=== PATIENT | female | born 1945 | race Asian ===

== ENCOUNTER 2019-12-30 16:10 | Emergency (ER) | payer MEDICARE, SELFPAY ==
[2019-12-30 16:21] VITALS: BP 138/68; PULSE 79; RESP 21; TEMP 36.7; O2SAT 98; BMI 22.6
--- NOTE | 2019-12-30 16:28 | ED_ITS ---
HPI - Chest Pain <MADELINE Srivastava - Last Filed: 12/30/19 21:03> General Chief Complaint: Chest Pain Stated Complaint: new medication,now has CP past few days Time Seen by Provider: 12/30/19 16:12 Source: patient Mode of arrival: Ambulatory Limitations: no limitations History of Present Illness HPI narrative: 74-year-old female with a history of hypertension, presents emergency department complaining of intermittent chest pain for the past 5 days. She states she was prescribed amlodipine by her primary care provider, Dr. Rojas, 5 days ago, she started taking this medication at this time which is when she developed the symptoms. She reports intermittent substernal chest pain with episodes lasting 1-2 minutes. Patient describes the quality of the pain as ?normal pain ?. Denies burning, sharp stabbing, or pressure. She denies any aggravating or alleviating factors to her pain. However, this morning she had an episode of diaphoresis, nausea, and diarrhea with the chest pain. She denies any palpitation, shortness of breath, cough, stomach pain, blood in the stool, vomiting, fevers, or any other concerns. Patient states she took a baby aspirin this morning. She denies taking any other blood thinners. Upon further questioning, patient states that she has had a ?abnormal heartbeat ?in the past, she is unsure the exact name. Related Data Previous Rx's Medication Instructions Recorded omeprazole 20 mg PO DAILY #14 cap 12/30/19 Allergies Allergy/AdvReac Type Severity Reaction Status Date / Time morphine Allergy Verified 12/30/19 16:26 Review of Systems <MADELINE Srivastava - Last Filed: 12/30/19 21:03> Review of Systems Narrative: REVIEW OF SYSTEMS: Poor historian. History also obtained from patient's daughter. GENERAL: Denies fever or chills. HENT: No head trauma, hearing loss or sore throat. EYES: No vision changes. CARDIOVASCULAR: No chest pain, see HPI. RESPIRATORY: No shortness of breath or cough. GASTROINTESTINAL: Reports diarrhea, see HPI. GENITOURINARY: No flank pain or dysuria. MUSCULOSKELETAL: No pain, weakness, or deformities. INTEGUMENTARY: No rash, lesions, or pruritus. NEURO: No numbness, tingling, memory loss, or confusion. PSYCH: No behavior or mood changes. Patient History <MADELINE Srivastava - Last Filed: 12/30/19 21:03> Medical History HTN (hypertension) (Acute) Social History Smoking Status: Unknown if ever smoked Smoking Status: Unknown if ever smoked alcohol intake frequency: holidays/special occasions only Substance Use Type: does not use Exam <MADELINE Srivastava - Last Filed: 12/30/19 21:03> Initial Vital Signs Initial Vital Signs: Vital Signs Temperature 98.0 F 12/30/19 16:21 Pulse Rate 79 12/30/19 16:21 Respiratory Rate 21 12/30/19 16:21 Blood Pressure 138/68 12/30/19 16:21 Pulse Oximetry 98 12/30/19 16:21 PHYSICAL EXAMINATION: GENERAL: Well groomed, alert, and cooperative. Answers questions appropriately. Vital signs noted. HENT: Normocephalic, atraumatic. Ear canals patent. Oral mucosa is pink and moist. EYES: Conjunctiva pink, sclera white, no periorbital swelling. CHEST: Normal to inspection and without deformities. CARDIOVASCULAR: S1 and S2 sounds normal. Regular rate and rhythm, no murmurs, clicks, or bruits. No pedal edema. RESPIRATORY: Normal respiratory rate, trachea midline, airway patent. No stridor, nasal flaring or accessory muscle use. Lungs are clear in all perez without wheeze, rhonchi, or crackles. GASTROINTESTINAL: Bowel sounds normoactive. Abdomen is soft and non-tender. No organomegaly. MUSCULOSKELETAL: Normal gait and coordination. Equal tone and mass bilaterally. EXTREMITIES: CMS intact. Moves all extremities. SKIN: Warm, dry, soft, appropriate color for ethnicity. No lesions, rashes, or wounds. NEURO: Alert and Oriented X 3. Good coordination. No ataxia, or sensory deficits , or cognitive issues. PSYCH: Appropriate affect and mood. <Ida Bell MD - Last Filed: 12/31/19 00:06> Initial Vital Signs Initial Vital Signs: Vital Signs Temperature 98.0 F 12/30/19 16:21 Pulse Rate 79 12/30/19 16:21 Respiratory Rate 21 12/30/19 16:21 Blood Pressure 138/68 12/30/19 16:21 Pulse Oximetry 98 12/30/19 16:21 Course <Clare MADELINE Frias - Last Filed: 12/30/19 21:03> Course Course Narrative: 1900: Patient re-evaluated, continues to be pain-free. Requesting to be discharged. Orders Ordered: ED Orders 12/30/19 16:23 Complete Blood Count AUTO DIFF Stat Comprehensive Metabolic Panel Stat Lipase Stat Troponin & CK Cardiac Panel Stat 12/30/19 16:27 XR chest 1V Stat EKG-12 Lead Stat Discontinued Medications Sodium Chloride (Normal Saline 0.9%) 1,000 mls @ 150 mls/hr IV CONT GEORGE Last Infusion: 12/30/19 19:40 Dose: 0 mls/hr Documented by: Admin: 12/30/19 16:48 Dose: 150 mls/hr Documented by: MAGALYS Consultations Consultation #1: Patient staffed with Dr. Bell, discussed test, test results, plan of care. Vital Signs Vital signs: Vital Signs - 8 hr 12/30/19 16:21 12/30/19 16:53 12/30/19 18:33 Temperature 98.0 F Pulse Rate 79 77 70 Respiratory Rate 21 17 15 Blood Pressure 138/68 Blood Pressure [Right Arm] 133/77 130/65 Pulse Oximetry 98 100 99 12/30/19 19:29 Temperature Pulse Rate 71 Respiratory Rate 14 Blood Pressure Blood Pressure [Right Arm] 145/71 H Pulse Oximetry 97 <Ida Bell MD - Last Filed: 12/31/19 00:06> Orders Ordered: ED Orders 12/30/19 16:23 Complete Blood Count AUTO DIFF Stat Comprehensive Metabolic Panel Stat Lipase Stat Troponin & CK Cardiac Panel Stat 12/30/19 16:27 XR chest 1V Stat EKG-12 Lead Stat Discontinued Medications Sodium Chloride (Normal Saline 0.9%) 1,000 mls @ 150 mls/hr IV CONT GEORGE Last Infusion: 12/30/19 19:40 Dose: 0 mls/hr Documented by: Admin: 12/30/19 16:48 Dose: 150 mls/hr Documented by: MAGALYS Vital Signs Vital signs: Vital Signs - 8 hr 12/30/19 16:21 12/30/19 16:53 05/14/20 18:33 Temperature 98.0 F Pulse Rate 79 77 70 Respiratory Rate 21 17 15 Blood Pressure 138/68 Blood Pressure [Right Arm] 133/77 130/65 Pulse Oximetry 98 100 99 12/30/19 19:29 Temperature Pulse Rate 71 Respiratory Rate 14 Blood Pressure Blood Pressure [Right Arm] 145/71 H Pulse Oximetry 97 MDM - Chest Pain <Clare MADELINE Frias - Last Filed: 12/30/19 21:03> Medical Records Data Attestation: I reviewed the patient's medical records. Lab Data Attestation: I reviewed the patient's lab results. Result diagrams: 12/30/19 16:23 12/30/19 16:23 Labs: Lab Results 12/30/19 12/30/19 Range/Units 16:23 16:23 WBC 5.8 (4.5-11.0) X10^3/uL RBC 4.89 (4.0-5.2) X10^6/uL Hgb 14.8 (12.0-16.0) g/dL Hct 43.5 (36-46) % MCV 89.0 (80-100) fL MCH 30.2 (26-34) PG MCHC 33.9 (30-36) % RDW 15.1 H (11.6-14.8) % Plt Count 280 (150-400) X10^3/uL Neut % (Auto) 81.8 H (50-75) % Lymph % (Auto) 9.7 L (25-40) % [place] % (Auto) 7.1 (3-14) % Eos % (Auto) 1.0 L (2-4) % Baso % (Auto) 0.4 (0-2) % Neut # (Auto) 4700 (6308-8946) /uL Lymph # (Auto) 600 L (5013-2742) /uL [place] # (Auto) 400 (0-900) /uL Eos # (Auto) 100 (0-450) /uL Baso # (Auto) 0 (0-100) /uL Sodium 140 (137-145) mmol/L Potassium 3.9 (3.4-5.1) mmol/L Chloride 109 H (98-107) mmol/L Carbon Dioxide 25 (22-32) mmol/L BUN 19 H (7-17) mg/dL Creatinine 0.87 (0.52-1.04) mg/dL Estimated GFR > 60.0 (>60) mL/min BUN/Creatinine Ratio 21.8 (6-22) Glucose 120 H (80-110) mg/dL Calcium 8.9 (8.4-10.2) mg/dL Total Bilirubin 0.7 (0.2-1.3) mg/dL AST 32 (14-36) IU/L ALT 20 (<35) IU/L Alkaline Phosphatase 52 (38-126) U/L Total Creatine Kinase 50 (30-135) U/L CK-MB (CK-2) TNP CK-MB (CK-2) Rel Index TNP Troponin I < 0.012 (0.01-0.034) ng/mL Total Protein 7.1 (6.3-8.2) g/dL Albumin 4.0 (3.5-5.0) g/dL Globulin 3.1 (1.7-4.1) g/dL Albumin/Globulin Ratio 1.3 (1.0-2.8) Lipase 103 (23-300) U/L Imaging Data Extremity x-ray #1: Radiologist's Impression: [place] [address] XRay Report Signed Patient: Nayeli Vazquez [facility]#: [id number] : 4Acct:[id number] Age/Sex: 74 / FDate of Service: 12/30/19 Loc: ED Accession Number: [id number] Procedure: XR chest 1V Ordering Provider: Clare Frias PROCEDURE: XR CHEST 1V INDICATIONS: Chest pain TECHNIQUE: One view of the chest was acquired. COMPARISON: None. FINDINGS: Surgical changes and devices: None. Lungs and pleura: No focal pulmonary infiltrate seen. Small left pleural effusion. Mediastinum: Mediastinal contours appear normal. Moderate cardiomegaly. Bones and chest wall: No suspicious bony lesions. Overlying soft tissues appear unremarkable. IMPRESSION: Moderate cardiomegaly, small left pleural effusion. Dictated by: Demetrius Butts M.D. on 12/30/2019 at 17:15 Approved by: Demetrius Butts M.D. on 12/30/2019 at 17:16 ECG Data Interpretation: A flutter with 3-1 conduction. Rate 75, QTC 397. No ST elevation or ST depression. One PVC noted. EKG also viewed by Dr. Hero tai and Dr. Bell as well. MDM Narrative Medical decision making narrative: 74yo female presenting to the emergency [facility] for an brief episode of intermittent chest pain. Laboratory work within normal limits. Chest x-ray shows cardiomegaly with small pleural effusion, I do not believe this is the cause of patient's pain. I suspect cardiomegaly is due to chronic hypertension. I suspect patient's episode of pain followed by an episode of diaphoresis and diarrhea, is most likely caused by GI disturbance. This may or may not be due to her new medication. Symptoms did appear after her 1st dose of medication and have continued since then. Appears patient's symptoms occur in the morning after she takes medication. Patient was given omeprazole to help decrease acid. I am hesitant to change patient's medication at this time due to her A-flutter. I suspect patient's A-flutter is chronic as patient reports she has been diagnosed with a previous arrhythmia. Patient is rate controlled. However, she was encouraged to follow up with her primary care provider at the next possible appointment. CHADS2 score of 1, with intermediate risk for thromboembolic event due to age, daily aspirin was encouraged. No anticoagulation started due to suspicion of chronic controlled a flutter, and intermediate risk versus high risk of thrombolytics event. Less likely ACS due to lack of acute ischemic changes, troponin negative over 6 hours since onset of chest pain, patient remains chest pain-free. Description of pain is less cardiac in nature and patient denies any other symptoms such as shortness of breath. Strict ED return precautions given for new or worsening symptoms. Patient agreed to plan of care verbalized understanding. <Ida Bell MD - Last Filed: 12/31/19 00:06> Lab Data Labs: Lab Results 12/30/19 12/30/19 Range/Units 16:23 16:23 WBC 5.8 (4.5-11.0) X10^3/uL RBC 4.89 (4.0-5.2) X10^6/uL Hgb 14.8 (12.0-16.0) g/dL Hct 43.5 (36-46) % MCV 89.0 (80-100) fL MCH 30.2 (26-34) PG MCHC 33.9 (30-36) % RDW 15.1 H (11.6-14.8) % Plt Count 280 (150-400) X10^3/uL Neut % (Auto) 81.8 H (50-75) % Lymph % (Auto) 9.7 L (25-40) % [place] % (Auto) 7.1 (3-14) % Eos % (Auto) 1.0 L (2-4) % Baso % (Auto) 0.4 (0-2) % Neut # (Auto) 4700 (9244-6872) /uL Lymph # (Auto) 600 L (1663-2801) /uL [place] # (Auto) 400 (0-900) /uL Eos # (Auto) 100 (0-450) /uL Baso # (Auto) 0 (0-100) /uL Sodium 140 (137-145) mmol/L Potassium 3.9 (3.4-5.1) mmol/L Chloride 109 H (98-107) mmol/L Carbon Dioxide 25 (22-32) mmol/L BUN 19 H (7-17) mg/dL Creatinine 0.87 (0.52-1.04) mg/dL Estimated GFR > 60.0 (>60) mL/min BUN/Creatinine Ratio 21.8 (6-22) Glucose 120 H (80-110) mg/dL Calcium 8.9 (8.4-10.2) mg/dL Total Bilirubin 0.7 (0.2-1.3) mg/dL AST 32 (14-36) IU/L ALT 20 (<35) IU/L Alkaline Phosphatase 52 (38-126) U/L Total Creatine Kinase 50 (30-135) U/L CK-MB (CK-2) TNP CK-MB (CK-2) Rel Index TNP Troponin I < 0.012 (0.01-0.034) ng/mL Total Protein 7.1 (6.3-8.2) g/dL Albumin 4.0 (3.5-5.0) g/dL Globulin 3.1 (1.7-4.1) g/dL Albumin/Globulin Ratio 1.3 (1.0-2.8) Lipase 103 (23-300) U/L Discharge Plan Departure Patient Disposition: Home Clinical Impression: Atypical chest pain Diarrhea Qualifiers: Diarrhea type: unspecified type Qualified Code(s): R19.7 - Diarrhea, unspecif ied Discharge Date/Time: 12/30/19 19:41 Instructions: DI for Atypical Chest Pain Activity Restrictions/Additional Instructions: Thank you for entrusting me with your care today. As discussed, I am unsure the exact cause of your pain. However, I believe it may be related to your gas trointestinal irritation. This could be caused by the new medication. However, it is important that you do not stop this medication without consulting your primary care provider. I prescribed you medication to help with stomach acid. Additionally, due to your atrial flutter, I recommend taking a 324 mg aspirin daily. Please call your doctor tomorrow to schedule a follow-up appointment and discuss the medication side effects. Return emergency department for any new or worsening symptoms such as return of chest pain, shortness of breath, high fevers, or any other concerns. Prescriptions: New omeprazole 20 mg capsule,delayed release(DR/EC) 20 mg PO DAILY Qty: 14 RF: 0 <Ida Bell MD - Last Filed: 12/31/19 00:06> Cosign ED Attending Cosignature Attestation: I was immediately available in the department for consultation throughout this patient's visit. I agree with documentation as above. Ida Bell MD
[2019-12-30] MEDS: SODIUM CHLORIDE 0.9% 1,000 ML 150 ML IV (16:48)
[2019-12-30 16:53] VITALS: BP 133/77; PULSE 77; RESP 17; O2SAT 100
[2019-12-30 18:15] LABS: Add Manual Diff / Slide Review NO; Basophils Absolute Auto 0 /uL (0-100); Basophils Percent Auto 0.4 % (0-2); Eosinophils Absolute Auto 100 /uL (0-450); Hematocrit 43.5 % (36-46); Hemoglobin 14.8 g/dL (12.0-16.0); Lymphocytes Absolute Auto 600 /uL (1100-4500); Lymphocytes Percent Auto 9.7 % (25-40); Mean Corpuscular HGB Conc 33.9 % (30-36); Mean Corpuscular Hemoglobin 30.2 PG (26-34); Monocytes Absolute Auto 400 /uL (0-900); Monocytes Percent Auto 7.1 % (3-14); Neutrophils Absolute Auto 4700 /uL (1500-7000); Neutrophils Percent Auto 81.8 % (50-75); Platelet Count 280 X10^3/uL (150-400); Red Blood Cell Count 4.89 X10^6/uL (4.0-5.2); Red Cell Distribution Width 15.1 % (11.6-14.8); White Blood Cell Count 5.8 X10^3/uL (4.5-11.0)
[2019-12-30 18:27] LABS: Alanine Aminotransferase 20 IU/L (<35); Albumin Globulin Ratio 1.3 (1.0-2.8); Alkaline Phosphatase 52 U/L (38-126); Aspartate Aminotransferase 32 IU/L (14-36); BUN Creatinine Ratio 21.8 (6-22); Bilirubin Total 0.7 mg/dL (0.2-1.3); Blood Urea Nitrogen 19 mg/dL (7-17); Calcium 8.9 mg/dL (8.4-10.2); Carbon Dioxide 25 mmol/L (22-32); Chloride 109 mmol/L (98-107); Creatine Kinase 50 U/L (30-135); Estimated Glomerular Filt Rate > 60.0 mL/min (>60); Globulin 3.1 g/dL (1.7-4.1); Glucose 120 mg/dL (80-110); HEMOLYSIS 47 (0-50); Lipase 103 U/L (23-300); Potassium 3.9 mmol/L (3.4-5.1); Sodium 140 mmol/L (137-145); Total Protein 7.1 g/dL (6.3-8.2)
[2019-12-30 18:33] VITALS: BP 130/65; PULSE 70; RESP 15; O2SAT 99
[2019-12-30 18:39] LABS: Troponin I < 0.012 ng/mL (0.01-0.034)
[2019-12-30 19:29] VITALS: BP 145/71; PULSE 71; RESP 14; O2SAT 97
== END 2019-12-30 19:41 | disposition home or self-care (01) ==
PROVIDERS: Emergency Provider Nurse Practitioner
DX: R07.89 Other chest pain (principal); R19.7 Diarrhea, unspecified
CPT/HCPCS: 36415; 71045; 80053; 82550; 83690; 84484; 85025; 93005; 96360; 96361; 99284

== ENCOUNTER 2020-08-24 09:24 | Inpatient (IN) | payer OTHER, MEDICARE, SELFPAY ==
[2020-08-24] VITALS (15 sets, daily range): BP systolic 121–171; BP diastolic 63–94; PULSE 67–85; RESP 13–20; TEMP 36.4–36.6; O2SAT 97–100; BMI 22.3
--- NOTE | 2020-08-24 09:22 | DI.CT.S_ITS ---
PROCEDURE: CT STROKE INDICATIONS: stroke TECHNIQUE: Noncontrast 4.5 mm thick angled axial sections acquired from the foramen magnum to the vertex, with coronal reformats. For radiation dose reduction, the following was used: automated exposure control, adjustment of mA and/or kV according to patient size. COMPARISON: None. FINDINGS: Image quality: Excellent. CSF spaces: Basal cisterns are patent. No extra-axial fluid collections. The ventricles are symmetric in size and shape. Brain: Small old infarct in the left cerebellum. No intracranial bleeds or masses. There is prominent CSF space along the cerebral sulci likely secondary to cerebral atrophy. There are mild periventricular and deep white matter chronic small vessel ischemic changes. There is intracranial internal carotid artery atherosclerosis. Skull and face: Calvarium and visualized facial bones appear intact, without suspicious lesions. Sinuses: Visualized sinuses and mastoids are clear. IMPRESSION: 1. No acute intracranial abnormalities. 2. Small old infarct involving the left cerebellum. 3. Prominent cerebral atrophy. 4. Mild chronic microvascular ischemic changes. This study fulfills neurological imaging criteria for inclusion or exclusion of acute stroke therapies based on available published neurological guidelines. Dictated by: Kumar Estrada M.D. on 08/24/2020 at 9:43 Approved by: Kumar Estrada M.D. on 08/24/2020 at 9:49
--- NOTE | 2020-08-24 09:22 | DI.CT.S_ITS ---
PROCEDURE: CT ANGIO HEAD AND NECK INDICATIONS: stroke TECHNIQUE: After the administration of intravenous contrast, 1 mm thick sections acquired from the aortic arch through the [place]. Post-contrast 4.5 mm thick sections then re-acquired from the foramen magnum to the vertex. 3-dimensional gwvbduq-mphrrrudz-lajmubosdn (MIP) and/or volume rendering reformats were acquired of the central intracranial vasculature and neck separately. COMPARISON: [facility], CT, CT STROKE, 08/24/2020, 9:23. FINDINGS: Image quality: Excellent. BRAIN: CSF spaces: Ventricles are normal in size and shape. Basal cisterns are patent. No extra-axial fluid collections. Brain: No midline shift. No intracranial bleeds or masses. Gonzalez-white matter interface appears intact. Diffuse volume loss with a bifrontal predominance. Old focal left cerebellar infarct. Old left-sided deep white matter lacunar infarction. Skull and face: Calvarium and facial bones appear intact, without suspicious lesions. Orbits appear normal. Sinuses: Sinuses and mastoids are clear. HEAD CT ANGIOGRAPHY: Anterior circulation: Intracranial internal carotid arteries are normal in size and flow. The flow within the paired anterior cerebral arteries is normal and symmetric. The flow within the middle cerebral arteries is normal and symmetric. The anterior communicating artery is seen. No aneurysms are seen. Posterior circulation: Visualized portions of the vertebral arteries demonstrate normal caliber, and join to form a normal appearing basilar artery. Flow within the posterior cerebral arteries is normal and symmetric. No aneurysms are seen. NECK CT ANGIOGRAPHY: Carotid system: The great vessels demonstrate a conventional anatomy as they arise from the aortic arch. The origins of the common carotid arteries appear patent. The common carotid arteries demonstrate normal caliber and courses. The bifurcation regions are both widely patent. The internal carotid arteries demonstrate normal calibers and courses. Posterior circulation: The origins of the vertebral arteries both appear widely patent. The more superior extracranial portions of both vertebral arteries also demonstrate normal courses and calibers. They join to form a normal appearing basilar artery. Soft tissues: Visualized neck soft tissues demonstrate no suspicious abnormalities. Bones: No suspicious bony lesions. Visualized cervical spine appears normally aligned. IMPRESSION: 1. Cerebral volume loss with a bifrontal predominance. 2. 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 3. No evidence of acute stroke, hemorrhage, or mass. 4. Unremarkable CTA head. No stenosis, occlusion, aneurysm, or filling defect. 5. Patent internal carotids. Otherwise unremarkable CTA neck. Comment: Findings were discussed with Dr. Bell at the time of study dictation on 08/24/20 at 10:01 hours. Any quantitative measurements of stenosis were performed using NASCET criteria. Dictated by: Demetrius Butts M.D. on 08/24/2020 at 9:53 Approved by: Demetrius Butts M.D. on 08/24/2020 at 10:05
--- NOTE | 2020-08-24 09:24 | ED.GENADULT ---
HPI - General Adult General Chief complaint: Neuro Symptoms/Deficit Stated complaint: stroke Time Seen by Provider: 08/24/20 09:25 History of Present Illness HPI narrative: 75-year-old woman with a history of hypertension and hyperlipidemia who lives with her familyand presents with a complete aphasia. Per medics, Family noted that she had come out of her room yesterday and when they checked on her this morning they found her minimally responsive. She is maintaining an airway and able to make some nonpurposeful movement with her hands. Code stroke was called and she has taken directly to the CT scanner. As last known well as greater than 24 hour she will not be a tPA candidate. On closer exam upon arrival in the emergency department she is altered but will respond to direct questioning moving all 4 extremities, and can indicate yes or no to direct questioning. Related Data Previous Rx's Medication Instructions Recorded omeprazole 20 mg PO DAILY #14 cap 12/30/19 Allergies Allergy/AdvReac Type Severity Reaction Status Date / Time codeine Allergy Verified 08/24/20 09:42 morphine Allergy Verified 08/24/20 09:41 Review of Systems Review of Systems ROS Unobtainable: Unobtainable due to mental status/LOC Patient History Medical History HTN (hypertension) Social History Smoking Status: Unknown if ever smoked Exam Narrative Exam Narrative: General: Response to direct questions, protecting airway HEENT: Dry mucous membranes, normal sclera with sluggishly reactive midposition pupils, Neck: No JVD, supple Respiratory: Lungs are clear to auscultation, no wheezing no rales no rhonchi. Full and symmetrical air movement Cardiac: Irregular rate and rhythm no murmurs no bruits Abdomen: Soft, nontender, good bowel tones, no flank pain Skin: Warm and dry, no rashes, no skin breakdown. She does have small bruise on the left anterior ryan that appears 1 to 2-day-old Neurologic: Globally weak, GCS 14, she is able to move all extremities and smile with symmetrical facial movement. She is not able to speak to assess aphasia or dysarthria Extremities: No trauma, well perfused Psych: Altered mental status with attempts to be cooperative NIH Stroke Scale/Score (NIHSS) from [employer] on RESULT SUMMARY: 4 points NIH Stroke Scale INPUTS: 1A: Level of consciousness ?> 2 = Requires repeated stimulation to arouse 1B: Ask month and age ?> 1 = 1 question right 1C: 'Blink eyes' & 'squeeze hands' ?> 1 = Performs 1 task 2: Horizontal extraocular movements ?> 0 = Normal 3: Visual perez ?> 0 = No visual loss 4: Facial palsy ?> 0 = Normal symmetry 5A: Left arm motor drift ?> 0 = No drift for 10 seconds 5B: Right arm motor drift ?> 0 = No drift for 10 seconds 6A: Left leg motor drift ?> 0 = No drift for 5 seconds 6B: Right leg motor drift ?> 0 = No drift for 5 seconds 7: Limb Ataxia ?> 0 = No ataxia 8: Sensation ?> 0 = Normal; no sensory loss 9: Language/aphasia ?> 0 = Normal; no aphasia 10: Dysarthria ?> 0 = Normal 11: Extinction/inattention ?> 0 = No abnormality Score is more due to global alteration than any specific localizing findings Initial Vital Signs Initial Vital Signs: Vital Signs Temperature 97.7 F 08/24/20 09:25 Pulse Rate 78 08/24/20 09:25 Respiratory Rate 18 08/24/20 09:25 Blood Pressure 146/68 H 08/24/20 09:25 Pulse Oximetry 99 08/24/20 09:25 Course Orders Ordered: ED Orders 08/24/20 09:[address] angio head and neck Stat EKG-12 Lead Stat 08/24/20 09:40 Complete Blood Count AUTO DIFF Stat Comprehensive Metabolic Panel Stat Lactate (Lactic Acid) Stat Partial Thromboplastin Time Stat Prothrombin Time INR Stat Thyroid Stimulating Hormone Stat Troponin & CK Cardiac Panel Stat 08/24/20 09:56 Blood Culture Stat 08/24/20 09:57 XR chest 1V Stat 08/24/20 10:04 Urinalysis and Microscopic Stat Urine Culture Stat Urine Drug Screen, Rapid Stat 08/24/20 10:16 COVID19 Stat 08/24/20 11:20 Free T3, Triiodothyronine Free Stat T4 Total Thyroxine Stat Sodium Chloride (Normal Saline 0.9%) 1,000 mls @ 150 mls/hr IV CONT GEORGE Last Admin: 08/24/20 11:06 Dose: Not Given Documented by: Ceftriaxone Sodium/Dextrose (Rocephin) 2 gm in 50 mls @ 100 mls/hr IV NOW ONE Stop: 08/24/20 11:49 Discontinued Medications Dextrose (Dextrose 50 % In Water 25 Gm/50 Ml Syringe) 12.5 gm IV NOW ONE Stop: 08/24/20 10:10 Last Admin: 08/24/20 10:12 Dose: 12.5 gm Documented by: BAILEE Sodium Chloride (Normal Saline 0.9%) 1,000 mls @ 1,000 mls/hr IV BOLUS ONE Stop: 08/24/20 10:55 Last Admin: 08/24/20 09:59 Dose: 1,000 mls/hr Documented by: BAILEE Vital Signs Vital signs: Vital Signs - 8 hr 08/24/20 09:25 Temperature 97.7 F Pulse Rate 78 Respiratory Rate 18 Blood Pressure 146/68 H Pulse Oximetry 99 Medical Decision Making Medical Records Medical records reviewed: Yes I reviewed the patient's medical records. Lab Data Lab results reviewed: Yes I reviewed the patient's lab results. Result diagrams: 08/24/20 09:40 08/24/20 09:40 Labs: Lab Results 08/24/20 08/24/20 08/24/20 Range/Units 09:40 09:40 09:40 WBC 7.8 (4.5-11.0) X10^3/uL RBC 4.25 (4.0-5.2) X10^6/uL Hgb 13.0 (12.0-16.0) g/dL Hct 39.3 (36-46) % MCV 92.5 (80-100) fL MCH 30.5 (26-34) PG MCHC 33.0 (30-36) % RDW 14.3 (11.6-14.8) % Plt Count 223 (150-400) X10^3/uL Neut % (Auto) 86.6 H (50-75) % Lymph % (Auto) 7.5 L (25-40) % [place] % (Auto) 5.0 (3-14) % Eos % (Auto) 0.6 L (2-4) % Baso % (Auto) 0.3 (0-2) % Neut # (Auto) 6700 (5353-5254) /uL Lymph # (Auto) 600 L (3916-9315) /uL [place] # (Auto) 400 (0-900) /uL Eos # (Auto) 0 (0-450) /uL Baso # (Auto) 0 (0-100) /uL PT 13.8 H (10.1-12.7) SECONDS INR 1.2 (0.9-1.3) APTT 32 (26.4-36.2) SECONDS Sodium 133 L (137-145) mmol/L Potassium 3.9 (3.4-5.1) mmol/L Chloride 108 H (98-107) mmol/L Carbon Dioxide 23 (22-32) mmol/L BUN 23 H (7-17) mg/dL Creatinine 0.76 (0.52-1.04) mg/dL Estimated GFR > 60.0 (>60) mL/min BUN/Creatinine Ratio 30.3 H (6-22) Glucose 66 L (80-110) mg/dL Lactate (0.7-2.1) mmol/L Calcium 7.0 L (8.4-10.2) mg/dL Total Bilirubin 0.6 (0.2-1.3) mg/dL AST 28 (14-36) IU/L ALT 13 (<35) IU/L Alkaline Phosphatase 37 L (38-126) U/L Total Creatine Kinase 173 H (30-135) U/L CK-MB (CK-2) 0.37 (<2.37) ng/mL CK-MB (CK-2) Rel Index 0.2 L (1.5-5.0) % Troponin I 0.089 H (0.01-0.034) ng/mL Total Protein 4.8 L (6.3-8.2) g/dL Albumin 2.5 L (3.5-5.0) g/dL Globulin 2.3 (1.7-4.1) g/dL Albumin/Globulin Ratio 1.1 (1.0-2.8) TSH (0.47-4.68) uIU/mL Urine Color Urine Appearance Urine pH (4.5-8.0) Ur Specific Mallory (1.000-1.035) Urine Protein (Negative) Urine Glucose (UA) (Negative) g/dL Urine Ketones (NEGATIVE) Urine Occult Blood (Negative) Urine Nitrate (Negative) Urine Bilirubin (NEGATIVE) Urine Urobilinogen (0.2) E.U./dL Ur Leukocyte Esterase (NEGATIVE) Urine RBC (0-5/HPF) Urine WBC (0-5/HPF) Ur Squamous Epith Cells (0-5/HPF) Urine Bacteria (None) Ur Culture Indicated? U Opiates 300ng/mL cut (Negative) Ur Oxycodone Screen (Negative) Urine Methadone Screen (Negative) Ur Barbiturates Screen (Negative) U Tricyclic Antidepress (Negative) Ur Phencyclidine Scrn (Negative) Ur Amphetamines Screen (Negative) U Methamphetamines Scrn (Negative) Ur MDMA Scrn (Ecstasy) (Negative) U Benzodiazepines Scrn (Negative) Urine Cocaine Screen (Negative) U Marijuana (THC) Screen (Negative) SARS-CoV-2 (PCR) (Negative) 08/24/20 08/24/20 08/24/20 Range/Units 09:40 09:40 10:04 WBC (4.5-11.0) X10^3/uL RBC (4.0-5.2) X10^6/uL Hgb (12.0-16.0) g/dL Hct (36-46) % MCV (80-100) fL MCH (26-34) PG MCHC (30-36) % RDW (11.6-14.8) % Plt Count (150-400) X10^3/uL Neut % (Auto) (50-75) % Lymph % (Auto) (25-40) % [place] % (Auto) (3-14) % Eos % (Auto) (2-4) % Baso % (Auto) (0-2) % Neut # (Auto) (8442-8179) /uL Lymph # (Auto) (5301-2135) /uL [place] # (Auto) (0-900) /uL Eos # (Auto) (0-450) /uL Baso # (Auto) (0-100) /uL PT (10.1-12.7) SECONDS INR (0.9-1.3) APTT (26.4-36.2) SECONDS Sodium (137-145) mmol/L Potassium (3.4-5.1) mmol/L Chloride (98-107) mmol/L Carbon Dioxide (22-32) mmol/L BUN (7-17) mg/dL Creatinine (0.52-1.04) mg/dL Estimated GFR (>60) mL/min BUN/Creatinine Ratio (6-22) Glucose (80-110) mg/dL Lactate 1.0 (0.7-2.1) mmol/L Calcium (8.4-10.2) mg/dL Total Bilirubin (0.2-1.3) mg/dL AST (14-36) IU/L ALT (<35) IU/L Alkaline Phosphatase (38-126) U/L Total Creatine Kinase (30-135) U/L CK-MB (CK-2) (<2.37) ng/mL CK-MB (CK-2) Rel Index (1.5-5.0) % Troponin I (0.01-0.034) ng/mL Total Protein (6.3-8.2) g/dL Albumin (3.5-5.0) g/dL Globulin (1.7-4.1) g/dL Albumin/Globulin Ratio (1.0-2.8) TSH 0.142 L (0.47-4.68) uIU/mL Urine Color Urine Appearance Urine pH (4.5-8.0) Ur Specific Mallory (1.000-1.035) Urine Protein (Negative) Urine Glucose (UA) (Negative) g/dL Urine Ketones (NEGATIVE) Urine Occult Blood (Negative) Urine Nitrate (Negative) Urine Bilirubin (NEGATIVE) Urine Urobilinogen (0.2) E.U./dL Ur Leukocyte Esterase (NEGATIVE) Urine RBC (0-5/HPF) Urine WBC (0-5/HPF) Ur Squamous Epith Cells (0-5/HPF) Urine Bacteria (None) Ur Culture Indicated? U Opiates 300ng/mL cut Negative (Negative) Ur Oxycodone Screen Negative (Negative) Urine Methadone Screen Negative (Negative) Ur Barbiturates Screen Negative (Negative) U Tricyclic Antidepress Negative (Negative) Ur Phencyclidine Scrn Negative (Negative) Ur Amphetamines Screen Negative (Negative) U Methamphetamines Scrn Negative (Negative) Ur MDMA Scrn (Ecstasy) Negative (Negative) U Benzodiazepines Scrn Negative (Negative) Urine Cocaine Screen Negative (Negative) U Marijuana (THC) Screen Negative (Negative) SARS-CoV-2 (PCR) (Negative) 08/24/20 08/24/20 Range/Units 10:04 10:16 WBC (4.5-11.0) X10^3/uL RBC (4.0-5.2) X10^6/uL Hgb (12.0-16.0) g/dL Hct (36-46) % MCV (80-100) fL MCH (26-34) PG MCHC (30-36) % RDW (11.6-14.8) % Plt Count (150-400) X10^3/uL Neut % (Auto) (50-75) % Lymph % (Auto) (25-40) % [place] % (Auto) (3-14) % Eos % (Auto) (2-4) % Baso % (Auto) (0-2) % Neut # (Auto) (0183-6541) /uL Lymph # (Auto) (9776-6907) /uL [place] # (Auto) (0-900) /uL Eos # (Auto) (0-450) /uL Baso # (Auto) (0-100) /uL PT (10.1-12.7) SECONDS INR (0.9-1.3) APTT (26.4-36.2) SECONDS Sodium (137-145) mmol/L Potassium (3.4-5.1) mmol/L Chloride (98-107) mmol/L Carbon Dioxide (22-32) mmol/L BUN (7-17) mg/dL Creatinine (0.52-1.04) mg/dL Estimated GFR (>60) mL/min BUN/Creatinine Ratio (6-22) Glucose (80-110) mg/dL Lactate (0.7-2.1) mmol/L Calcium (8.4-10.2) mg/dL Total Bilirubin (0.2-1.3) mg/dL AST (14-36) IU/L ALT (<35) IU/L Alkaline Phosphatase (38-126) U/L Total Creatine Kinase (30-135) U/L CK-MB (CK-2) (<2.37) ng/mL CK-MB (CK-2) Rel Index (1.5-5.0) % Troponin I (0.01-0.034) ng/mL Total Protein (6.3-8.2) g/dL Albumin (3.5-5.0) g/dL Globulin (1.7-4.1) g/dL Albumin/Globulin Ratio (1.0-2.8) TSH (0.47-4.68) uIU/mL Urine Color Yellow Urine Appearance Sl cloudy Urine pH 5.5 (4.5-8.0) Ur Specific [place] 1.010 (1.000-1.035) Urine Protein Negative (Negative) Urine Glucose (UA) Negative (Negative) g/dL Urine Ketones Trace H (NEGATIVE) Urine Occult Blood 1+ H (Negative) Urine Nitrate Positive H (Negative) Urine Bilirubin Negative (NEGATIVE) Urine Urobilinogen 0.2 (0.2) E.U./dL Ur Leukocyte Esterase 1+ H (NEGATIVE) Urine RBC 0-1/hpf (0-5/HPF) Urine WBC >100/hpf H (0-5/HPF) Ur Squamous Epith Cells 1-5 /hpf (0-5/HPF) Urine Bacteria Many (>30) H (None) Ur Culture Indicated? Specimen cultured U Opiates 300ng/mL cut (Negative) Ur Oxycodone Screen (Negative) Urine Methadone Screen (Negative) Ur Barbiturates Screen (Negative) U Tricyclic Antidepress (Negative) Ur Phencyclidine Scrn (Negative) Ur Amphetamines Screen (Negative) U Methamphetamines Scrn (Negative) Ur MDMA Scrn (Ecstasy) (Negative) U Benzodiazepines Scrn (Negative) Urine Cocaine Screen (Negative) U Marijuana (THC) Screen (Negative) SARS-CoV-2 (PCR) Negative (Negative) Point of Care Testing Glucose POC 132 Point of care testing: Point of Care Testing Glucose POC 132 Imaging Data Chest x-ray: Radiologist's Impression: FINDINGS: Surgical changes and devices: Cholecystectomy clips are seen. Lungs and pleura: Lungs are clear. No pleural effusions or pneumothorax. Mediastinum: The cardiac contours are at the upper limits of normal for portable technique. The aorta demonstrates calcification and tortuosity. Bones and chest wall: No suspicious bony lesions. Overlying soft tissues appear unremarkable. IMPRESSION: Portable chest within normal limits. Dictated by: Darrell Candelaria M.D. on 08/24/2020 at 9:57 CT scan - head: Radiologist's Impression: Verbal report from Radiology indicates no acute bleed or obvious acute intracranial abnormalities CT a of the head Neck, verbal report indicates no obvious acute abnormalities ECG Data Attestation: I personally reviewed and interpreted this ECG as follows: Interpretation: Atrial fibrillation/flutter at a rate of 71 No acute ischemic changes, normal axis MDM Narrative Medical decision making narrative: 75-year-old woman with altered mental status last seen more than 24 hours ago. Exam suggests more metabolic alteration than acute stroke. CT scan and CT a do not suggest an acute stroke. She has new atrial fibrillation rate controlled at 71 (medics reports that family was not aware of atrial fibrillation, patient indicates she is never heard of atrial fibrillation, prior records are not available thus the presumption of a new diagnosis). Slightly elevated troponin that will need to be trended. Urinalysis certainly looks like a bladder infection and ceftriaxone will be started to cover this. White blood cell count is not dramatically elevated nor is lactic acid to suggest sepsis. Calcium level is low however corrects given low total protein and albumin. TSH is slightly suppressed and T3 and T4 will be added. Chest x-ray does not show infiltrates pneumonia or obvious heart failure Will admit for altered mental status, new atrial fibrillation,elevated troponin and urinary tract infection without evidence of sepsis. Care is reviewed with Dr Teixeira. Discharge Plan Departure Patient Disposition: Admitted as Observation Clinical Impression: Atrial fibrillation and flutter, Elevated troponin, Acute UTI Altered mental state Qualifiers: Altered mental status type: disorientation Qualified Code(s): R41.0 - Disorientation, unspecified
[2020-08-24 09:52] LABS: Add Manual Diff / Slide Review NO; Basophils Absolute Auto 0 /uL (0-100); Basophils Percent Auto 0.3 % (0-2); Eosinophils Absolute Auto 0 /uL (0-450); Eosinophils Percent Auto 0.6 % (2-4); Hematocrit 39.3 % (36-46); Lymphocytes Absolute Auto 600 /uL (1100-4500); Lymphocytes Percent Auto 7.5 % (25-40); Mean Corpuscular Hemoglobin 30.5 PG (26-34); Mean Corpuscular Volume 92.5 fL (80-100); Monocytes Absolute Auto 400 /uL (0-900); Neutrophils Absolute Auto 6700 /uL (1500-7000); Neutrophils Percent Auto 86.6 % (50-75); Platelet Count 223 X10^3/uL (150-400); Red Blood Cell Count 4.25 X10^6/uL (4.0-5.2); Red Cell Distribution Width 14.3 % (11.6-14.8); White Blood Cell Count 7.8 X10^3/uL (4.5-11.0)
--- NOTE | 2020-08-24 09:57 | DI.RAD.S_ITS ---
PROCEDURE: XR CHEST 1V INDICATIONS: Altered mental status TECHNIQUE: One view of the chest was acquired. COMPARISON: [facility], , XR CHEST 1V, 12/30/2019, 16:50. FINDINGS: Surgical changes and devices: Cholecystectomy clips are seen. Lungs and pleura: Lungs are clear. No pleural effusions or pneumothorax. Mediastinum: The cardiac contours are at the upper limits of normal for portable technique. The aorta demonstrates calcification and tortuosity. Bones and chest wall: No suspicious bony lesions. Overlying soft tissues appear unremarkable. IMPRESSION: Portable chest within normal limits. Dictated by: Darrell Candelaria M.D. on 08/24/2020 at 9:57 Approved by: Darrell Candelaria M.D. on 08/24/2020 at 9:57
[2020-08-24] MEDS: SODIUM CHLORIDE 0.9% 1,000 ML 1000 ML IV (09:59)
[2020-08-24 10:00] LABS: INR 1.2 (0.9-1.3); Prothrombin Time 13.8 SECONDS (10.1-12.7)
[2020-08-24 10:03] LABS: PTT Partial Thromboplastin Tim 32 SECONDS (26.4-36.2)
[2020-08-24 10:05] LABS: Alanine Aminotransferase 13 IU/L (<35); Albumin 2.5 g/dL (3.5-5.0); Albumin Globulin Ratio 1.1 (1.0-2.8); Alkaline Phosphatase 37 U/L (38-126); Aspartate Aminotransferase 28 IU/L (14-36); BUN Creatinine Ratio 30.3 (6-22); Bilirubin Total 0.6 mg/dL (0.2-1.3); Blood Urea Nitrogen 23 mg/dL (7-17); Carbon Dioxide 23 mmol/L (22-32); Chloride 108 mmol/L (98-107); Creatine Kinase 173 U/L (30-135); Estimated Glomerular Filt Rate > 60.0 mL/min (>60); Globulin 2.3 g/dL (1.7-4.1); Glucose 66 mg/dL (80-110); HEMOLYSIS < 15 (0-50); Potassium 3.9 mmol/L (3.4-5.1); Sodium 133 mmol/L (137-145); Total Protein 4.8 g/dL (6.3-8.2)
--- NOTE | 2020-08-24 10:08 | PC.NURSE ---
cultures and lactate
--- NOTE | 2020-08-24 10:09 | PC.NURSE ---
Following 1/2 amg D50
[2020-08-24] MEDS: DEXTROSE 50 % IN WATER 25 GM/50 ML SYRINGE IV ×2 (10:12→13:49)
[2020-08-24 10:15] LABS: Appearance Urine UA SL CLOUDY; Bilirubin Urine UA NEGATIVE (NEGATIVE); Color Urine UA YELLOW; Glucose Urine UA NEGATIVE (Negative); Ketones Urine UA TRACE (NEGATIVE); Leukocyte Esterase Urine UA 1+ (NEGATIVE); Nitrite Urine UA POSITIVE (Negative); Occult Blood Urine UA 1+ (Negative); Protein Urine UA NEGATIVE (Negative); Urobilinogen Urine UA 0.2 E.U./dL (0.2)
[2020-08-24 10:16] LABS: Troponin I 0.089 ng/mL (0.01-0.034)
--- NOTE | 2020-08-24 10:18 | PC.NURSE ---
No change in neuro status after D50
[2020-08-24 10:19] LABS: pH Urine UA 5.5 (4.5-8.0)
[2020-08-24 10:20] LABS: CKMB % Relative Index 0.2 % (1.5-5.0); Creatine Kinase MB 0.37 ng/mL (<2.37)
[2020-08-24 10:25] LABS: RBC Urine 0-1/HPF (0-5/HPF)
[2020-08-24 10:26] LABS: Bacteria Urine Many (>30); Culture Indicated Urine Specimen Cultured; Squamous Epithelial Cell Urine 1-5 /HPF (0-5/HPF); WBC Urine >100/HPF (0-5/HPF)
[2020-08-24 10:29] LABS: UR Morphine/Opiate cutoff 300 Negative (Negative); Ur Creatinine Normal (Normal); Ur Specific Gravity Normal (Normal); Urine Amphetamines Negative (Negative); Urine Barbiturates Negative (Negative); Urine Benzodiazepines Negative (Negative); Urine Cocaine Negative (Negative); Urine MDMA Negative (Negative); Urine Methamphetamines Negative (Negative); Urine Phencyclidine Negative (Negative); Urine Tetrahydrocannabinol Negative (Negative); Urine pH Normal (Normal)
[2020-08-24 10:30] LABS: Urine Methadone Negative (Negative); Urine Oxycodone Negative (Negative); Urine Tricyclic Antidepressant Negative (Negative)
[2020-08-24 10:43] LABS: COVID19 -Nasal RAPID Negative (Negative)
[2020-08-24 10:53] LABS: Thyroid Stimulating Hormone 0.142 uIU/mL (0.47-4.68)
[2020-08-24] MEDS: CEFTRIAXONE 2 GM/50 ML FROZ.PIGGY IV (11:29)
--- NOTE | 2020-08-24 11:46 | PC.NURSE ---
See Dr Bell's complete NIH scale.
--- NOTE | 2020-08-24 13:24 | PC.ADMIT ---
1208 [facility] Admission Note: The patient,Nayeli Vazquez,75 y/o, was given written information regarding hospital policies, unit procedures and contact persons. Patient's smoking status: Unknown if ever smoked. Vital Signs - 8 hr 08/24/20 09:25 08/24/20 09:57 08/24/20 10:00 Temperature 97.7 F Pulse Rate 78 80 80 Respiratory Rate 18 19 18 Blood Pressure 146/68 H 131/63 Pulse Oximetry 99 98 99 08/24/20 10:30 08/24/20 11:00 08/24/20 11:30 Temperature Pulse Rate 72 72 74 Respiratory Rate 16 13 15 Blood Pressure 143/67 H 152/81 H 171/79 H Pulse Oximetry 99 99 100 08/24/20 12:00 08/24/20 12:01 08/24/20 12:30 Temperature Pulse Rate 74 74 85 Respiratory Rate 18 16 18 Blood Pressure 121/64 167/74 H Pulse Oximetry 98 100 99 BG 79 AFTER ARRIVAL TO [facility]. DR. ANDREW NOTIFIED OF HYPOGLYCEMIA IN ER, AND 1/2 AMP D50 GIVEN IN ER. DR. ANDREW WILL REVIEW AND WRITE ORDERS. PATIENT OPENS EYES SPONTANEOUSLY, TRIES TO MUMBLE A RESPONSE, ORAL CARE PROVIDED WITHOUT IMPROVEMENT. VSS. 98% ON RA. UNABLE TO GIVE HISTORY. BED ALARM ON, CONT PULSE OX IN PLACE, TELE PLACED WITHIN 5 MIN OF ARRIVAL.
[2020-08-24] MEDS: DEXTROSE 5%-0.9% NS 1,000 ML 100 ML IV (13:32)
--- NOTE | 2020-08-24 13:36 | DI.MRI.S_ITS ---
PROCEDURE: MR STROKE Pre- and post-contrast brain MRI, non-contrast brain MR angiogram, pre- and postcontrast neck MR angiogram INDICATIONS: altered mental status TECHNIQUE: Brain: Noncontrast axial T1 spin echo, axial T2 fast spin echo, sagittal and axial FLAIR, coronal T2 fast spin echo, axial gradient echo, axial diffusion and ADC through the brain. After the administration of contrast, axial 3D VIBE of the cranial vasculature and brain. Brain MRA: Non-contrast 3-D time of flight MR angiogram, with multiple ysvedhi-fmjyixcku-ctbrzzfokk (MIP) reformats performed. Neck MRA: Axial and sagittal TruFISP through the neck. Coronal dynamic MR angiogram during administration of contrast in the arterial and venous phases, with 3-dimenstional olkoltn-roegcvtgg-tpytzunipx (MIP) reformats constructed from subtraction images. COMPARISON: [facility], CT, CT ANGIO HEAD AND NECK, 08/24/2020, 9:27. [facility], CT, CT STROKE, 08/24/2020, 9:23. FINDINGS: Image quality: Excellent. BRAIN: CSF spaces: There is moderate cerebral volume loss with prominence of the ventricles and sulci. Basal cisterns are patent. No extra-axial fluid collections. Brain: Diffusion weighted images demonstrate bilateral areas of restricted diffusion within the bilateral thalami and medial left midbrain with associated T2 hyperintensity, larger in size on the left. There is also a wedge-shaped small region of restricted diffusion within the left cerebellar hemisphere laterally with corresponding T2 hyperintensity. Findings are consistent with acute to subacute infarcts. Associated magnetic susceptibility artifact is demonstrated within the left thalamic focus consistent with hemorrhagic transformation. There are subcortical and periventricular foci of white matter T2 hyperintensity consistent with mild to moderate chronic small vessel ischemic changes. Normal intravascular flow voids are present. No abnormal intracranial enhancement. Skull and face: Calvarial marrow signal is normal. Orbits appear normal. Sinuses: There is mild mucosal thickening within the ethmoid sinuses. The mastoid air cells are clear. BRAIN MR ANGIOGRAM: Anterior circulation: Intracranial internal carotid arteries are normal in size and patent bilaterally. The flow within the paired anterior cerebral arteries is symmetric and patent bilaterally. The flow within the middle cerebral arteries is symmetric and patent bilaterally. The anterior communicating artery is patent. No high-grade stenoses, occlusions, or aneurysms. Posterior circulation: The visualized portions of the vertebral arteries are patent and join to form a patent basilar artery. The flow within the posterior cerebral arteries is symmetric and patent bilaterally. There is persistent circulation bilaterally, with the posterior cerebral artery supplied by posterior communicating arteries. No high-grade stenoses, occlusions, or aneurysms. NECK MR ANGIOGRAM: Carotids: Great vessels demonstrate conventional anatomy as they arise from the aortic arch. The origins of the common carotid arteries appear patent. The calibers and courses of both common carotid arteries are normal. The carotid bulbs appear widely patent. The internal carotid arteries demonstrate normal course and caliber. Posterior circulation: There is mild narrowing at the origin of the left vertebral artery. More superior portions of both vertebral arteries appear patent, and join to form a patent appearing basilar artery. Miscellaneous: Subclavian arteries appear patent. Pre-contrast images through the neck demonstrate no soft tissue abnormalities. IMPRESSION: BRAIN MRI: 1. Bilateral acute to early subacute infarcts of the thalami, medial left midbrain, and left cerebellar hemisphere. Given the multifocal distribution, the findings are suggestive of embolic disease. 2. Foci of magnetic susceptibility within the left thalamic infarct compatible with hemorrhagic transformation, likely reflecting petechial hemorrhage. 3. Mild to moderate cerebral volume loss and chronic white matter small vessel ischemic changes. BRAIN MR ANGIOGRAM: 1. No high-grade stenosis or occlusion of the central intracranial arteries. NECK MR ANGIOGRAM: 1. No high-grade stenosis or occlusion of the head and neck arteries. The carotid bulbs appear widely patent. 2. Mild narrowing at the origin of the left vertebral artery. Findings discussed with Dr. Cross on 08/24/2020 at 4:10 p.m.. Dictated by: Sam Cota M.D. on 08/24/2020 at 15:47 Approved by: Sam Cota M.D. on 08/24/2020 at 16:18
--- NOTE | 2020-08-24 13:38 | PM.HP.1 ---
History of Present Illness History of Present Illness Date Patient Seen: 08/24/20 Time Patient Seen: 13:38 Chief complaint: stroke Narrative: History is predominantly taken from emergency room documentation as the patient is not alert. This is a 75-year-old female with a past medical history of hypertension, hyperlipidemia, prior SVT status post ablation who presented to the emergency room with altered mental status. According to the ER provider, family went to check on the patient this morning and found her minimally responsive. A code stroke was called in the ER but patient appeared to be altered more likely because of a metabolic cause. The patient is quite somnolent currently, but will awaken to sternal rub and does follow commands but rapidly falls back asleep. She follows commands in all extremities equally. There is no facial droop. Her speech is quite slurred. I was able to speak to the daughter and she was not able to really give any additional information regarding the acute events. She does state that the patient is not a complainer but does generally take her medications. She also says that in the past the patient has had a couple episodes of slurred speech and facial droop for which she did not seek medical care after the symptoms resolved after couple of minutes. She states that her mom has not complained of any shortness of breath, palpitations, urinary frequency or dysuria but frequently will not voice these complaints to her family. In the emergency room she was mildly hypertensive, but the remainder of her vital signs were unremarkable. She was noted to be in atrial flutter with a controlled rate, this is a new diagnosis for the patient. Laboratory evaluation revealed an unremarkable CBC, normal coagulation studies. Chemistries revealed a mild hyponatremia with a sodium of 133, normal creatinine at 0.76, a glucose of 66. The patient was given an amp of D50 without improvement in her mental status. Lactic acid was 1.0. Troponin was mildly elevated at 0.089. TSH was mildly low at 0.142 with normal free T3 and T4 levels. UA was grossly positive with nitrates, leuk esterase, and greater than 100 white cells and many bacteria. Chest x-ray was negative for acute pathologies. CT head without contrast and CT angiogram of her head and neck revealed evidence previous/old strokes, but no acute hemorrhage or infarction. There was prominent cerebral atrophy and microvascular ischemic changes. Urine drug screen was negative. COVID testing was negative. Patient was admitted for toxic metabolic encephalopathy of uncertain etiology. Patient History Medical History (Updated 08/24/20 @ 14:11 by Elisabeth Piña RN) H/O supraventricular tachycardia Hard of hearing HTN (hypertension) Hyperlipidemia Osteoporosis Syncope Vitamin D deficiency, unspecified Surgical History (Updated 08/24/20 @ 14:11 by Elisabeth Piña RN) History of lumpectomy History of radiofrequency ablation (RFA) procedure for cardiac arrhythmia Family & Social History Tobacco & Substance use: Smoking Status Unknown if ever smoked alcohol intake frequency holiday/special occasion Substance Use Type does not use Meds Home Medications and Allergies Home Medications Medication Instructions Recorded Confirmed Type omeprazole 20 mg PO DAILY #14 cap 12/30/19 Rx alendronate 70 mg PO WEEKLY 08/24/20 08/24/20 History atorvastatin 10 mg PO DAILY 08/24/20 08/24/20 History Allergies Allergy/AdvReac Type Severity Reaction Status Date / Time codeine Allergy Verified 08/24/20 09:42 morphine Allergy Verified 08/24/20 09:41 Review of Systems Review of Systems ROS: Yes unobtainable due to mental status Exam Vital Signs (past 8 hours): - 08/24/20 09:25 08/24/20 09:57 08/24/20 10:00 Temperature 97.7 F Pulse Rate 78 80 80 Respiratory Rate 18 19 18 Blood Pressure 146/68 H 131/63 Pulse Oximetry 99 98 99 08/24/20 10:30 08/24/20 11:00 08/24/20 11:30 Temperature Pulse Rate 72 72 74 Respiratory Rate 16 13 15 Blood Pressure 143/67 H 152/81 H 171/79 H Pulse Oximetry 99 99 100 08/24/20 12:00 08/24/20 12:01 08/24/20 12:30 Temperature Pulse Rate 74 74 85 Respiratory Rate 18 16 18 Blood Pressure 121/64 167/74 H Pulse Oximetry 98 100 99 Oxygen Delivery Method Room Air Narrative Exam Narrative: GENERAL APPEARANCE: Well developed, well nourished, somnolent. Appears comfortable. SKIN: Inspection of the skin reveals no rashes, ulcerations or petechiae. Small scattered bruising, minimal. HEENT: Normocephalic atraumatic. There are small punctate ? purulent lesions in her oropharynx, unable to visualize tonsils. NECK: Supple and symmetric. There was no thyroid enlargement, and no tenderness, or masses were felt. + cervical lymphadenopathy. CHEST: Normal AP diameter and normal contour without any kyphoscoliosis. LUNGS: Auscultation of the lungs revealed no wheezes, rhonchi, or rales. Poor inspiratory effort. CARDIOVASCULAR: Irregularly irregular, no obvious m/r/g. ABDOMEN: Soft and nontender with normal bowel sounds. No ascites was noted. MUSCULOSKELETAL: There was no tenderness or effusions noted. Muscle strength and tone were normal. EXTREMITIES: No cyanosis, clubbing or edema. NEUROLOGIC: somnolent. moans and states intelligible words (I have to pee when palpating abdomen). Follows commands, not complex. Moves all extremities equally. Objective ECG Impression: Atrial flutter with vairable conduction non-specific ST changes Imaging CT scan - head: Radiologist's impression: IMPRESSION: 1. Cerebral volume loss with a bifrontal predominance. 2. 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 3. No evidence of acute stroke, hemorrhage, or mass. 4. Unremarkable CTA head. No stenosis, occlusion, aneurysm, or filling defect. 5. Patent internal carotids. Otherwise unremarkable CTA neck. Labs Result Diagrams: 08/24/20 09:40 08/24/20 09:40 Labs: Laboratory Results - last 24 hr 08/24/20 08/24/20 08/24/20 09:40 09:40 09:40 WBC 7.8 RBC 4.25 Hgb 13.0 Hct 39.3 MCV 92.5 MCH 30.5 MCHC 33.0 RDW 14.3 Plt Count 223 Neut % (Auto) 86.6 H Lymph % (Auto) 7.5 L [place] % (Auto) 5.0 Eos % (Auto) 0.6 L Baso % (Auto) 0.3 Neut # (Auto) 6700 Lymph # (Auto) 600 L [place] # (Auto) 400 Eos # (Auto) 0 Baso # (Auto) 0 PT 13.8 H INR 1.2 APTT 32 Sodium 133 L Potassium 3.9 Chloride 108 H Carbon Dioxide 23 BUN 23 H Creatinine 0.76 Estimated GFR > 60.0 BUN/Creatinine Ratio 30.3 H Glucose 66 L Lactate Calcium 7.0 L Total Bilirubin 0.6 AST 28 ALT 13 Alkaline Phosphatase 37 L Total Creatine Kinase 173 H CK-MB (CK-2) 0.37 CK-MB (CK-2) Rel Index 0.2 L Troponin I 0.089 H Total Protein 4.8 L Albumin 2.5 L Globulin 2.3 Albumin/Globulin Ratio 1.1 TSH Thyroxine (T4) Free T3 Urine Color Urine Appearance Urine pH Ur Specific [place] Urine Protein Urine Glucose (UA) Urine Ketones Urine Occult Blood Urine Nitrate Urine Bilirubin Urine Urobilinogen Ur Leukocyte Esterase Urine RBC Urine WBC Ur Squamous Epith Cells Urine Bacteria Ur Culture Indicated? U Opiates 300ng/mL cut Ur Oxycodone Screen Urine Methadone Screen Ur Barbiturates Screen U Tricyclic Antidepress Ur Phencyclidine Scrn Ur Amphetamines Screen U Methamphetamines Scrn Ur MDMA Scrn (Ecstasy) U Benzodiazepines Scrn Urine Cocaine Screen U Marijuana (THC) Screen SARS-CoV-2 (PCR) 08/24/20 08/24/20 08/24/20 09:40 09:40 09:40 WBC RBC Hgb Hct MCV MCH MCHC RDW Plt Count Neut % (Auto) Lymph % (Auto) [place] % (Auto) Eos % (Auto) Baso % (Auto) Neut # (Auto) Lymph # (Auto) [place] # (Auto) Eos # (Auto) Baso # (Auto) PT INR APTT Sodium Potassium Chloride Carbon Dioxide BUN Creatinine Estimated GFR BUN/Creatinine Ratio Glucose Lactate 1.0 Calcium Total Bilirubin AST ALT Alkaline Phosphatase Total Creatine Kinase CK-MB (CK-2) CK-MB (CK-2) Rel Index Troponin I Total Protein Albumin Globulin Albumin/Globulin Ratio TSH 0.142 L Thyroxine (T4) 7.30 Free T3 3.50 Urine Color Urine Appearance Urine pH Ur Specific [place] Urine Protein Urine Glucose (UA) Urine Ketones Urine Occult Blood Urine Nitrate Urine Bilirubin Urine Urobilinogen Ur Leukocyte Esterase Urine RBC Urine WBC Ur Squamous Epith Cells Urine Bacteria Ur Culture Indicated? U Opiates 300ng/mL cut Ur Oxycodone Screen Urine Methadone Screen Ur Barbiturates Screen U Tricyclic Antidepress Ur Phencyclidine Scrn Ur Amphetamines Screen U Methamphetamines Scrn Ur MDMA Scrn (Ecstasy) U Benzodiazepines Scrn Urine Cocaine Screen U Marijuana (THC) Screen SARS-CoV-2 (PCR) 08/24/20 08/24/20 08/24/20 10:04 10:04 10:16 WBC RBC Hgb Hct MCV MCH MCHC RDW Plt Count Neut % (Auto) Lymph % (Auto) [place] % (Auto) Eos % (Auto) Baso % (Auto) Neut # (Auto) Lymph # (Auto) [place] # (Auto) Eos # (Auto) Baso # (Auto) PT INR APTT Sodium Potassium Chloride Carbon Dioxide BUN Creatinine Estimated GFR BUN/Creatinine Ratio Glucose Lactate Calcium Total Bilirubin AST ALT Alkaline Phosphatase Total Creatine Kinase CK-MB (CK-2) CK-MB (CK-2) Rel Index Troponin I Total Protein Albumin Globulin Albumin/Globulin Ratio TSH Thyroxine (T4) Free T3 Urine Color Yellow Urine Appearance Sl cloudy Urine pH 5.5 Ur Specific [place] 1.010 Urine Protein Negative Urine Glucose (UA) Negative Urine Ketones Trace H Urine Occult Blood 1+ H Urine Nitrate Positive H Urine Bilirubin Negative Urine Urobilinogen 0.2 Ur Leukocyte Esterase 1+ H Urine RBC 0-1/hpf Urine WBC >100/hpf H Ur Squamous Epith Cells 1-5 /hpf Urine Bacteria Many (>30) H Ur Culture Indicated? Specimen cultured U Opiates 300ng/mL cut Negative Ur Oxycodone Screen Negative Urine Methadone Screen Negative Ur Barbiturates Screen Negative U Tricyclic Antidepress Negative Ur Phencyclidine Scrn Negative Ur Amphetamines Screen Negative U Methamphetamines Scrn Negative Ur MDMA Scrn (Ecstasy) Negative U Benzodiazepines Scrn Negative Urine Cocaine Screen Negative U Marijuana (THC) Screen Negative SARS-CoV-2 (PCR) Negative Assessment & Plan Assessment & Plan narrative: This is a 75-year-old female with a past medical history of hypertension, hyperlipidemia, prior SVT status post ablation, previous atrail flutter who presented to the emergency room with altered mental status and is admitted for further evaluation of a toxic metabolic encephalopathy. 1. Toxic metabolic encephalopathy, acute, present on admission -unclear etiology at this time but differential includes acute CVA given her new atrial flutter and CT evidence of old infarctions. May be secondary to sepsis although she does not have a white count or fever at this time, but her UA is grossly positive. Possible prolonged hypoglycemia? although no improvement in mental status here with d50. -follow-up urine and blood cultures -continue supportive care with IV fluids, with additional glucose given her blood sugars keep falling. -urine drug screen negative -CT head and CT angiogram head and neck revealed evidence of old infarctions including the deep white matter and left cerebellum. Have ordered MRI to evaluate for an acute infarction. - there are odd lesions in her mouth and mild cervical lymphadenopathy which I cannot fully explain at this time, will send HIV testing. Any infectious etiologies will be more than adequately covered by ceftriaxone. 2. Hypertension, chronic -given the possibility of an acute CVA and normal blood pressures on admission will hold home medications for now 3. Atrial flutter, new diagnosis, likely paroxysmal -as an outpatient patient recently concluded a ZIO patch and is awaiting the results according to her daughter. -EKG shows atrial flutter with variable conduction with a controlled rate. No evidence of ischemia. -However, EKG performed 01/04 shows atrial flutter and presumed chronic at that time. -she has a reported history of SVT ablation per PMD documentation in 2018. -CHADS-VASC score of 6. Will need anticoagulation, start immediately if MRI negative for acute infarct. 4. HLD - continue home statin 5. Elevated troponin, acute, present on admission - no evidence of ischemia on EKG, suspect elevated in the setting of arrythmia. Will continue to trend. 6. Acute cystitis, present on admission - continue ceftriaxone 1g daily. Code: Full, surrogate decision maker is next of kin, daughter DVT; Lovenox daily, will switch to full AC if no evidence of acute infarct on MRI. Dispo: admitted under observation status at this time, pending determination of the cause of her encephalopathy. Scores CHADS-VASc Congestive heart failure: no Hypertension: yes Age 75 years or older: yes Diabetes mellitus: no Stroke, TIA, or TE: yes Vascular disease: no Age 65 to 74 years: no Sex category (female): Female CHADS-VASc Score: 6
[2020-08-25] VITALS (11 sets, daily range): BP systolic 127–142; BP diastolic 65–86; PULSE 69–77; RESP 16–22; TEMP 36.5–36.8; O2SAT 96–100
[2020-08-25] MEDS: DEXTROSE 5%-0.9% NS 1,000 ML 100 ML IV (01:32)
--- NOTE | 2020-08-25 01:43 | PC.NURSE ---
At around 01:15AM patient woke up and said she needed to go pee. Pt has been able to follow commands and is cooperative during care but unable to keep eyes open. 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 Pt is now asleep with call light within reach and bed alarm on.
[2020-08-25] MEDS: ACETAMINOPHEN 650 MG SUPP PR (02:06)
--- NOTE | 2020-08-25 06:37 | PC.NURSE ---
Pt stable at start of shift, responsive. Able to indicate the need to use the restroom. Able to state name, , age, location- not oriented to situation or year. Difficult to understand, speech still slurred and garbled but coherent. Very tired, required frequent prompting to stay awake enough for a full assessment. NIHSS 7 at time of assessment, lower limbs drift slightly to gravity. Remained asleep for the rest of the shift, difficult to rouse but VSS. Arthritis in hands prompted an order of PRN tylenol NH, pt tolerated well. Pt remains NPO, glucose levels slightly elevated but stable.
[2020-08-25 08:42] LABS: Add Manual Diff / Slide Review NO; Basophils Absolute Auto 0 /uL (0-100); Basophils Percent Auto 0.6 % (0-2); Eosinophils Absolute Auto 100 /uL (0-450); Eosinophils Percent Auto 1.7 % (2-4); Hematocrit 37.4 % (36-46); Hemoglobin 12.4 g/dL (12.0-16.0); Lymphocytes Absolute Auto 400 /uL (1100-4500); Lymphocytes Percent Auto 5.9 % (25-40); Mean Corpuscular HGB Conc 33.2 % (30-36); Mean Corpuscular Hemoglobin 30.6 PG (26-34); Mean Corpuscular Volume 92.2 fL (80-100); Monocytes Absolute Auto 500 /uL (0-900); Monocytes Percent Auto 8.7 % (3-14); Neutrophils Absolute Auto 5200 /uL (1500-7000); Neutrophils Percent Auto 83.1 % (50-75); Platelet Count 209 X10^3/uL (150-400); Red Blood Cell Count 4.06 X10^6/uL (4.0-5.2); Red Cell Distribution Width 14.2 % (11.6-14.8); White Blood Cell Count 6.3 X10^3/uL (4.5-11.0)
[2020-08-25 08:52] LABS: Blood Urea Nitrogen 13 mg/dL (7-17); Calcium 6.9 mg/dL (8.4-10.2); Carbon Dioxide 25 mmol/L (22-32); Chloride 116 mmol/L (98-107); Estimated Glomerular Filt Rate > 60.0 mL/min (>60); Glucose 113 mg/dL (80-110); HEMOLYSIS < 15 (0-50); Potassium 3.3 mmol/L (3.4-5.1); Sodium 142 mmol/L (137-145)
[2020-08-25 08:53] LABS: Cholesterol 103 mg/dL (140-199); HDL Cholesterol 30 mg/dL (40-60); LDL Cholesterol Calculated 61 mg/dL (<100); Triglycerides 62 mg/dL (35-150)
[2020-08-25 08:55] LABS: Hemoglobin A1C% w Est Avg Glu 5.4 % (4.0-6.0)
--- NOTE | 2020-08-25 09:42 | SLP.IPNOTE ---
Order received for swallowing evaluation. Spoke with Dr. Teixeira. Pt was very somnolent, unable to arouse. Nursing will call when pt is more alert.
[2020-08-25] MEDS: ASPIRIN EC 81 MG TABLET PO (11:00)
[2020-08-25] MEDS: ENOXAPARIN 40 MG/0.4 ML SYRINGE SUBCUT (11:00)
[2020-08-25] MEDS: POTASSIUM CHLORIDE 40 MEQ in SODIUM CHLORIDE 0.9% 500 ML 130 ML IV (11:00)
--- NOTE | 2020-08-25 11:13 | PC.NURSE ---
Addendum entered by Ana Bro R.N. 08/25/20 13:18: 1230 Patient's LUE edematous, warm, IV infusing K+ at 130 cc/hr, Patient reports pain with saline flush and tender to touch. K+ stopped, IV flushed with NS and discontinued. New IV started in RAC, K+ restarted, patient tolerating. Original Note: Patient A/O to self and location. Arousable to voice and touch. Communicates needs appropriately. On bedpan for output and up to BSC with PT for BM. IV in left hand is patent and infusing D5 in NS at 100ml/hr. Patient denies pain. Lung sounds clear, patient denies SOB, on room air at this time. Bowel tones active x 4. Tele on, pulses equal, irregular bilaterally. Patient remains alert during assessment. Bed alarm on, call light in reach. ST notified patient is awake. This RN updated sister Fatou over the phone with patients permission.
--- NOTE | 2020-08-25 11:30 | PT.IIE ---
Surgical History (Last Updated 08/24/20 @ 14:11 by Elisabeth Piña RN) History of lumpectomy History of radiofrequency ablation (RFA) procedure for cardiac arrhythmia Medical History (Last Updated 08/24/20 @ 14:11 by Elisabeth Piña RN) H/O supraventricular tachycardia Hard of hearing HTN (hypertension) Hyperlipidemia Osteoporosis Syncope Vitamin D deficiency, unspecified Physical Therapy Inpatient Evaluation/Re-Eval M1 PT/OT-IP Prior Functional Status Start: 08/25/20 10:30 Freq: NEEDED Status: Active Protocol: Document 08/25/20 11:30 DLM (Rec: 08/25/20 13:17 [facility] [id number]) Medical Review Prior Functional Status Medical History Reviewed Yes Diet/Fluid Consistency Regular Communication WNL, dentures Mobility and Gait Independent with cane, goes up stairs at home to second floor shower once a week Activities of Daily Living and IADL's Independent with basic ADL's, family does advanced ADLs Social History Household Members family,children Living Arrangements House Number of Floors (Floors) Two Floors Number of Stairs To Enter/Railing? 2 Home Equipment Straight Cane,Grab Bars In Shower M2 PT-IP Current Condition Start: 08/25/20 10:30 Freq: NEEDED Status: Active Protocol: Document 08/25/20 11:30 DLM (Rec: 08/25/20 13:17 [facility] [id number]) Physical Therapy Current Condition Current Condition Evaluation Date 08/25/20 Treatment Diagnosis stroke, impaired balance Onset Date 08/24/20 Precautions Other Precautions she descibes impaired vision on left M3 PT-IP Subjective Start: 08/25/20 10:30 Freq: NEEDED Status: Active Protocol: Document 08/25/20 11:30 DLM (Rec: 08/25/20 13:17 [facility] [id number]) Subjective Physical Therapy Visit Type Type Initial Evaluation Visit Start Time 11:00 Visit Stop Time 11:30 Total Visit Minutes 30 Number of SPECIAL EDUCATION TUTOR Visits 0 Physical Therapy Visit Comments Patient Comments She describes impaired vision on left when looking with both eyes, she asked to go to the bathroom this visit Patient Goals she was not able to verbalize a goal Therapy Pain Assessment Pain When Pain Assessed At Rest Pain Present Pain Present Denied Pain M4 PT-IP Mobility and Gait Start: 08/25/20 10:30 Freq: NEEDED Status: Active Protocol: Document 08/25/20 11:30 DLM (Rec: 08/25/20 13:17 [facility] [id number]) PT-Bed Mobility Assessment Rolling Type of Rolling Roll to Left Level of Assist Independent Supine to Sit Supine to Sit Standby Assistance Sit to Supine Sit to Supine Standby Assistance Scooting Scooting to Edge of Bed Standby Assistance PT-Transfer Assessment Sit to and From Stand Sit to and from Stand Contact Guard Assistance, Minimal Assistance,Use of Upper Extremities Equipment Transfer Assistive Device Gait Belt Transfers Transfer Destination Bed,Bedside Commode Transfer Technique Stand Step Pivot Transfer Ability Level of Assist Contact Guard Assistance, Minimal Assistance,Use of Upper Extremities Comments Mobility Comments pt using UE support to steady herself, pt is aware of her bathroom needs, able to pull depends up/down Gait Assessment Gait Gait Assistance Required: Contact Guard Assist,Minimum Assistance Distance (Feet) 26 Assistive Devices Assistive Device Gait Belt Factors Limiting Gait Function Factors Limiting Gait Function Poor Balance Comments Gait Comments hand held assist used today, her cane is not in her room, mild decreased standing balance PT-Balance Assessment Sitting Balance and Reactions Static Sitting Balance Ability Good Dynamic Sitting Balance Ability Good Standing Balance and Reactions Static Standing Balance Ability Fair Dynamic Standing Balance Ability Fair M5 PT-IP Objective Assessments Start: 08/25/20 10:30 Freq: NEEDED Status: Active Protocol: Document 08/25/20 11:30 DL (Rec: 08/25/20 13:17 [facility] [id number]) Orientation Orientation/Cognition Level of Alertness Alert Orientation Name,Month,Year Language Function Ability Garbled Speech,Hard of Hearing Comments pt knows she is in the hospital but did not know the name, she does not know how she got here nor why, no unsafe activity attempted but pt has limited awareness of current situation, she did not know time of day, she requested her teeth to eat lunch Gross Range of Motion Upper Extremity ROM Assessment Within Functional Limits Lower Extremity ROM Assessment Within Functional Limits Strength Comments Strength Comments pt not able to fully participate in manual muscle testing this visit, using all extremities functionally, unable to determine if mild strength deficits Coordination Assessment Gross Coordination Gross Coordination WNL Sensation Assessment Comments Sensation Comments no sensory changes reported by patient Muscle Tone Muscle Tone WNL Yes M7 PT-IP Assessment and Plan Start: 08/25/20 10:30 Freq: NEEDED Status: Active Protocol: Document 08/25/20 11:30 DLM (Rec: 08/25/20 13:17 DLM [id number]) PT Summary Assessment and Plan Potential Rehabilitation Potential Good Status of Condition at Evaluation Evolving Summary Impairments Balance,Transfers,Gait, Activity Tolerance Assessment Summary Nayeli is awake and shows good participation in physical therapy. She describes feeling tired today but able to stay alert to use bedside commode and ambulate in room. Pt returned to bed at the end of this visit. Pt urinated and had BM while up this visit. Pt using all of her extremities functionally today but was not able to fully follow instructions for Manual muscle testing. Pt demonstrates a mild decrease in her standing balance statically and dynamically. Her only complaint is changes in her vision. She descibes difficulty seeing on right side when both eyes open. If she continues to progress well I anticipate she will be able to return home with assist from her family. Will continue to assess for discharge planning as she improves medically. Goals Bed Mobility Goal Independent Transfer Goal Independent Gait Goal Independent,Cane Gait Distance 150 feet Other Goals up and down 2 steps with rail, cane and CG assist Days to Meet Goals 3 Frequency of Treatment Frequency Of Treatment Twice a Day Treatment Plan Physical Therapy Treatment Plan Bed Mobility Training,Transfer Training,Gait Training, Therapeutic Exercise,Balance Retraining,Discharge Planning, Neuromuscular Re-ed Recommendations To Nursing Amount of Assist Needed 1 Person Assist Discharge Recommendations PT Discharge Recommendations Home with 10/03 Assist Transportation Needs at Discharge Private Vehicle
--- NOTE | 2020-08-25 11:49 | PM.PN.1 ---
Subjective Subjective Date Patient Seen: 08/25/20 Time Patient Seen: 11:51 Interval history: Nayeli Vazquez is a 75-year-old female with a past medical history of hypertension, hyperlipidemia, prior SVT ablation who was admitted with a she presumed toxic metabolic encephalopathy, but was found on MRI to have bilateral thalamic strokes. Initially this morning she remained minimally responsive, but later in the morning she awoke and was alert and oriented x3 and passed a speech eval without any difficulties. The patient does not recall any events of the past few days, and states that the last thing that she remembers was going to bed. She denied any abdominal pain, dysuria, or urinary frequency. She had had no palpitations or shortness of breath. She feels quite weak today and is having some difficulties with her peripheral vision today. Exam Vital Signs (past 8 hours): - 08/25/20 04:00 08/25/20 07:00 08/25/20 08:00 Temperature 98.1 F 98.2 F Pulse Rate 69 71 Respiratory Rate 22 18 Blood Pressure 131/75 127/65 Pulse Oximetry 98 96 97 Oxygen Delivery Method Room Air Oxygen Flow Rate 0 Narrative Exam Narrative: GENERAL APPEARANCE: Well developed, well nourished, in no acute distress. SKIN: Inspection of the skin reveals no rashes, ulcerations or petechiae. HEENT: Normocephalic atraumatic, extraocular muscles are intact, oropharynx today without oral lesions but mucosa is slightly dry, neck is supple without adenopathy NECK: Supple and symmetric. There was no thyroid enlargement, and no tenderness, or masses were felt. CHEST: Normal AP diameter and normal contour without any kyphoscoliosis. LUNGS: Auscultation of the lungs revealed no wheezes, rhonchi, or rales. CARDIOVASCULAR: There was a regular rate and rhythm without any murmurs, gallops, rubs. Peripheral pulses were 2+ and symmetric. ABDOMEN: Soft and nontender with normal bowel sounds. No ascites was noted. MUSCULOSKELETAL: There was no tenderness or effusions noted. Muscle strength and tone were normal. EXTREMITIES: No cyanosis, clubbing or edema. NEUROLOGIC: Alert and oriented x 3. Normal affect. Strength is +5/5 in the Upper Extremities and Lower Extremities Bilaterally. Sensation to touch was normal. Left upper visual field partial hemianopia and mildly slurred speech, for a stroke scale of 2 as documented below. Objective Imaging MRI - head: Radiologist's impression: MPRESSION: BRAIN MRI: 1. Bilateral acute to early subacute infarcts of the thalami, medial left midbrain, and left cerebellar hemisphere. Given the multifocal distribution, the findings are suggestive of embolic disease. 2. Foci of magnetic susceptibility within the left thalamic infarct compatible with hemorrhagic transformation, likely reflecting petechial hemorrhage. 3. Mild to moderate cerebral volume loss and chronic white matter small vessel ischemic changes. BRAIN MR ANGIOGRAM: 1. No high-grade stenosis or occlusion of the central intracranial arteries. NECK MR ANGIOGRAM: 1. No high-grade stenosis or occlusion of the head and neck arteries. The carotid bulbs appear widely patent. 2. Mild narrowing at the origin of the left vertebral artery. Labs Result Diagrams: 08/25/20 08:24 08/25/20 08:24 Labs: Laboratory Results - last 24 hr 08/24/20 08/24/20 08/25/20 09:40 17:32 08:24 WBC 6.3 RBC 4.06 Hgb 12.4 Hct 37.4 MCV 92.2 MCH 30.6 MCHC 33.2 RDW 14.2 Plt Count 209 Neut % (Auto) 83.1 H Lymph % (Auto) 5.9 L [place] % (Auto) 8.7 Eos % (Auto) 1.7 L Baso % (Auto) 0.6 Neut # (Auto) 5200 Lymph # (Auto) 400 L [place] # (Auto) 500 Eos # (Auto) 100 Baso # (Auto) 0 Sodium Potassium Chloride Carbon Dioxide BUN Creatinine Estimated GFR BUN/Creatinine Ratio Glucose Hemoglobin A1c Calcium Magnesium Troponin I 0.070 H Triglycerides Cholesterol LDL Cholesterol, Calc HDL Cholesterol Thyroxine (T4) 7.30 Free T3 3.50 08/25/20 08/25/20 08/25/20 08:24 08:24 08:24 WBC RBC Hgb Hct MCV MCH MCHC RDW Plt Count Neut % (Auto) Lymph % (Auto) [place] % (Auto) Eos % (Auto) Baso % (Auto) Neut # (Auto) Lymph # (Auto) [place] # (Auto) Eos # (Auto) Baso # (Auto) Sodium 142 Potassium 3.3 L Chloride 116 H Carbon Dioxide 25 BUN 13 Creatinine 0.59 Estimated GFR > 60.0 BUN/Creatinine Ratio 22.0 Glucose 113 H Hemoglobin A1c 5.4 Calcium 6.9 L Magnesium 2.0 Troponin I Triglycerides 62 Cholesterol 103 L LDL Cholesterol, Calc 61 HDL Cholesterol 30 L Thyroxine (T4) Free T3 [facility] Medical History (Updated 08/24/20 @ 14:11 by Elisabeth Piña RN) H/O supraventricular tachycardia Hard of hearing HTN (hypertension) Hyperlipidemia Osteoporosis Syncope Vitamin D deficiency, unspecified Surgical History (Updated 08/24/20 @ 14:11 by Elisabeth Piña RN) History of lumpectomy History of radiofrequency ablation (RFA) procedure for cardiac arrhythmia Social History household members: family and children Smoking Status: Never smoker Assessment & Plan Assessment & Plan narrative: This is a 75-year-old female with a past medical history of hypertension, hyperlipidemia, prior SVT status post ablation, previous atrail flutter who presented to the emergency room with altered mental status and is admitted for an acute CVA. 1. Acute CVA, present on admission -MRI brain: Bilateral acute to early subacute infarcts of the thalami, medial left midbrain, and left cerebellar hemisphere. Given the multifocal distribution, the findings are suggestive of embolic disease. Foci of magnetic susceptibility within the left thalamic infarct compatible with hemorrhagic transformation, likely reflecting petechial hemorrhage.Mild to moderate cerebral volume loss and chronic white matter small vessel ischemic changes. No high-grade stenosis or occlusion of the central intracranial arteries. No high-grade stenosis or occlusion of the head and neck arteries. The carotid bulbs appear widely patent. - I spoke to Neurosurgery at [facility], Dr. Duckworth, who reviewed the MRI but did not believe that there was hemorrhagic conversion at this time. He recommended possible transfer to a stroke center with possible interventional capabilities. I then spoke to the neuro drying supervisor at [facility], Dr. Alfaro, whom did not think that intervention would provide any benefit given her last known normal and time frame. He recommended physical and occupational therapy consults, speech therapy and to start aspirin. He recommended waiting 2 weeks prior to starting anticoagulation for atrial flutter. At this time he did not recommend seizure prophylaxis. He recommended repeating a head CT in a couple of weeks or if there is any mental status changes or worsening. - her mental status has improved this morning, with residual visual field deficit and mild slurred speech. Passed speech eval, start diet. -continue PT/OT/Speech. 2. Hypertension, chronic -given the possibility of an acute CVA and normal blood pressures on admission have held home medications. Will resume if hypertensive. 3. Atrial flutter, new diagnosis, likely paroxysmal -as an outpatient patient recently concluded a ZIO patch and is awaiting the results according to her daughter. -EKG shows atrial flutter with variable conduction with a controlled rate. No evidence of ischemia. -However, EKG performed 01/04 shows atrial flutter and presumed chronic at that time. -she has a reported history of SVT ablation per PMD documentation in 2018. -CHADS-VASC score of 6. Will need anticoagulation to start in 2 weeks given her infarcts. 4. HLD - continue home statin 5. Elevated troponin, acute, present on admission - no evidence of ischemia on EKG, suspect elevated in the setting of arrythmia. Troponin did downtrend, peaked at 0.089. 6. Acute cystitis, present on admission - continue ceftriaxone 1g daily x3 days. Code: Full, surrogate decision maker is next of kin, daughter DVT; Lovenox daily, will switch to full AC if no evidence of acute infarct on MRI. Dispo: inpatient status, unclear dispo if home or to acute rehab or SNF. Quality VTE Deep Vein Thrombosis/Pulmonary Embolism Present on Admission: No Scores NIHSS Level of Conciousness: Alert, keenly responsive Ask month/age: Answers both questions correctly. Open/close eyes, close hand: Performs both tasks correctly Best gaze horizontal: Normal Visual perez: Partial hemianopia Facial palsy: Normal symetrical movement Left arm drift: No drift for full 10 sec Right arm drift: No drift for full 10 sec Left leg drift: No drift for full 5 sec Right leg drift: No drift for full 5 sec Limb ataxia: Absent Sensory on face/arms/legs: Normal, no sensory loss Best language: No aphasia, normal Dysarthria: Mild to mod,some slurring Extinction or inattention: No abnormality Total NIH Stroke scale score: 2
--- NOTE | 2020-08-25 13:05 | CM.DANOTE ---
Addendum entered by Funmi Russell LPN 08/25/20 13:46: Do see that PT note is now available for review and with that pt was able to work with her. Addendum entered by Funmi Russell LPN 08/25/20 13:34: Spoke by phone with Joselin: her cell: [phone]. Introduced self and role. She clarifies that pt does live with her and her Lobo: his cell: [phone]. She says pt has not given POA to anyone. She does have an Advanced directive locked in the small safe in her room and admits that the family never did get the combination. She thinks Lobo may have it scanned in his electronic files and will ask him about this. He is expected to be at the hospital sometime this afternoon. Prior level of function: Joselin reports that with COVID she is staying at home and watches over her mother in law. Says she assists with medication management, setting up pills in a mediset and making sure that these are taken correctly. She provides meals and overall supportive care but otherwise says her mother in law is independent with mobility and self care. PCP: Dr. Nayeli Bustamante: [facility]. No PT/OT notes are currently available...will be following as d/c needs are clearer. Joselin confirms that Lobo does work outside their home but that he is the designated visitor and the primary family contact. Original Note: Discharge Planning/Care Management DCP: assessment: case received, EMR reviewed and met with pt. Introduced self and role. Abebe is found sitting in bed with small amounts of food on her tray that she is attempting to eat. Pt notes: There is something wrong with my eyes. I cannot see right, something is wrong. Pt is a 75 year old female who admitted yesterday to care of hospitalist team. PCP: unknown at this time Payer: [employer] Medicare Consulted: neurologiy at [facility]. PT/OT/CURRENCY COUNTER are ordered. DX after MRI is bilateral thalamic infarcts with possible hemorrhagic conversion. Pt confirms that her sister Fatou: [phone] lives in [place] and it is fine to share information with her. She clarifies that Lobo is her son and his is Joselin : only number for both is cell: [phone]. Assured her that this dcplanner would call them and that out team would be helping her find the appropriate rehab as this became clearer. Advanced directive, confirm from FAMILY Start: 08/24/20 14:16 Freq: Q24H Status: Complete Protocol: Document 08/24/20 14:54 CM (Rec: 08/24/20 14:54 CM [id number]) Advance Directive, confirm on record Time 14:54 Person contacted Pt-locked in her safe at home and family does not know her combo Copy received No Copy received No Advanced directive available on record No CM Discharge Assessment Start: 08/25/20 13:04 Freq: Status: Active Protocol: Document 08/25/20 13:04 ITV (Rec: 08/25/20 13:05 ITV [id number]) Discharge Planning Assessment Advance Directives? Yes History Provided By Patient,Medical Record Has Patient been admitted in last 30 No days? Prior Living Arrangements House Whiteboard Updated in Patient Room with Yes name and ext. # of Supervisor [place] Review Status In Process
--- NOTE | 2020-08-25 13:23 | ST.IPCSEOM ---
Visit Care Team Role Provider Type Ida Bell MD Emergency Provider Physician Referring Provider Specialty: Emergency Medicine Address: [address] [place] [address], [id number] Email: Daren Teixeira DO Admit Provider Physician Attending Provider Specialty: Internal Medicine Address: [address] [place] [address], [id number] Email: [email or web address] Past Medical History (Last Updated 08/24/20 @ 14:11 by Elisabeth Piña RN) H/O supraventricular tachycardia (Medical) Hard of hearing (Medical) HTN (hypertension) (Medical) Hyperlipidemia (Medical) Osteoporosis (Medical) Syncope (Medical) Vitamin D deficiency, unspecified (Medical) Speech-Language Pathology Swallow Evaluation RN ONCOLOGY RESEARCH Clinical Swallow Evaluation Start: 08/25/20 12:58 Freq: Status: Active Protocol: Document 08/25/20 12:58 LNK (Rec: 08/25/20 13:23 LNK [id number]) Clinical Swallow Evaluation Session Time Visit Start Time 11:20 Visit Stop Time 11:50 Total Visit Minutes [address] Teixeira Setting Assessment Location Acute Care Visit Type Note Type Initial evaluation Patient Information Identification Type Name,ID Card History Per H&P: This is a 75-year- old female with a past medical history of hypertension, hyperlipidemia, prior SVT status post ablation who presented to the emergency room with altered mental status. According to the ER provider, family went to check on the patient this morning and found her minimally responsive. A code stroke was called in the ER but patient appeared to be altered more likely because of a metabolic cause. The patient is quite somnolent currently, but will awaken to sternal rub and does follow commands but rapidly falls back asleep. She follows commands in all extremities equally. MRI showed bilateral thalamic infarcts with possible acute hemorrhagic conversion. I spoke to Neurosurgery at [facility], Dr. Duckworth, who reviewed the MRI but did not believe that there was hemorrhagic conversion at this time. He recommended possible transfer to a stroke center with possible interventional capabilities. I then spoke to the neuro horse shoer at [facility], Dr. Alfaro, whom did not think that intervention would provide any benefit given her last known normal and time frame. He recommended physical and occupational therapy consults, speech therapy and to start aspirin. Subjective Observations pt was alert and sitting in bed. She just completed session with OT. Reported by Patient Comment pt complained of vision changes . She said she can only see straight ahead. Current Diet Nothing by mouth Baseline Feeding Method Independent in self-feeding Objective Assessment Mental Status Alert,Responsive,Cooperative Oral Integrity WFL,Sores/Lesions,Xerostomia/ Dry mouth Dentition Dentures or partials present, Upper dentures/partials,Lower dentures/partials,Adequate denture or partial fitting Lip Function Within normal limits Observation of Lips at Rest Symmetrical Pucker Within normal limits Lip Retraction Within normal limits Tongue Function Within normal limits Tongue Protrusion Within normal limits Tongue Lateralization Within normal limits Hard/Soft Palate Function Within normal limits Food and Liquid Trials Position During Assessment Upright (90 degrees) Liquids Trialed Ice chips,Thin Solids Trialed Puree,Dysphagia Advanced, Regular Administration Type Tea spoon,Cup single sip, Controlled cup sip,Cup consecutive sips,Straw,Self- feeding Oral Impairment Within functional limits Oral Phase Comments Diadochokinesis WNL. No observation of slurring. OME observed to be WFL. Upper denture, lower partial. No oral residue following texture trials. Pharyngeal Impairment Within functional limits Pharyngeal Phase Comments Good hyolaryngeal elevation and hyoid movement. Voice was clear following swallowing. No cough, choke or wet voicing observed. Clinical evaluation does not r/o silent aspiration. Fatigue/Endurance Mild fatigue Findings Swallowing Function Within functional limits Severity of Swallow Impairment Within functional limits Contributing Factors to Swallow Reduced alertness or attention Impairment ,Difficulty following directions Prognosis Good Based on Cognitive status,Duration of symptoms/severity Comments Meals should be allowed when pt is alert. Levels of alertness variable Recommendations Instrumental Assessment No Swallowing Treatment Yes Frequency re-assess as indicated while inpatient Recommended Solids Regular Recommended Liquids Thin Safety Precautions/Swallowing Feed only when alert,Reduce Recommendations distractions,Remain upright ( 90 degrees) during all oral intake,Small bites and sips when eating,Slow rate; swallow between bites,Set-up assistance,Family assistance/ supervision,Check for pocketing Medication Recommendations As Tolerated Discharge Recommendations FDC facility Education Patient/Caregiver Education Patient expressed understanding of evaluation, Patient expressed agreement with goals & treatment plans Goals Long-term Goals Pt will safely tolerate PO intake to meet hydration and nutrition needs without s/sx aspiration.
--- NOTE | 2020-08-25 13:45 | PT.IPTN ---
Current Diagnoses Metabolic encephalopathy (08/24/20) Physical Therapy Treatment Note M2 PT-IP Current Condition Start: 08/25/20 10:30 Freq: NEEDED Status: Active Protocol: Document 08/25/20 11:30 DLM (Rec: 08/25/20 13:17 DLM [id number]) Physical Therapy Current Condition Current Condition Evaluation Date 08/25/20 Treatment Diagnosis stroke, impaired balance Onset Date 08/24/20 Precautions Other Precautions she descibes impaired vision on left M3 PT-IP Subjective Start: 08/25/20 10:30 Freq: NEEDED Status: Active Protocol: Document 08/25/20 13:45 AB (Rec: 08/25/20 16:04 AB [email or web address]) Subjective Physical Therapy Visit Type Type Treatment Note Visit Start Time 13:45 Visit Stop Time 14:15 Total Visit Minutes 30 Number of COUNSELLING PSYCHOLOGIST Visits 0 Physical Therapy Visit Comments Patient Comments pt is agreeable to do PT; c/o vision issues Therapy Pain Assessment Pain Present Pain Present Denied Pain M4 PT-IP Mobility and Gait Start: 08/25/20 10:30 Freq: NEEDED Status: Active Protocol: Document 08/25/20 13:45 AB (Rec: 08/25/20 16:04 AB [email or web address]) PT-Bed Mobility Assessment Supine to Sit Supine to Sit Minimal Assistance,1 Person Assistance,Bedrails PT-Transfer Assessment Sit to and From Stand Sit to and from Stand Minimal Assistance,1 Person Assistance,Use of Upper Extremities Equipment Transfer Assistive Device Gait Belt,Front Wheeled Walker Orthotic/Prosthetic Devices or Brace: No Transfers Transfer Destination Chair Transfer Technique ambulated using FWW Transfer Ability Level of Assist Minimal Assistance,1 Person Assistance,Use of Upper Extremities Comments Mobility Comments completed supine to sit min A and cues. pt was able to sit on EOB CGA. c/o vision issues stating that images are crossing on top of the other. completed sit to stand min A and ambulated in room using FWW min A and cues. required cues to maneuver FWW due to decrease vision. agreed to ambulate in the hallway and completed ~ 60 ft but requested to use the toilet afterwards and ambulated to the toilet min A. required min A to maintain standing balance while doing hygiene care and brief management. ambulated out of the toilet to the chair. pt agreed to sit up on the chair. positioned. call light and table placed within reach. chair alarm set up. Gait Assessment Gait Gait Assistance Required: Minimum Assistance,1 Person Assist Distance (Feet) 60 Able to Maintain Weight Bearing Status Yes During Gait Assistive Devices Assistive Device Gait Belt,Front Wheeled Walker Orthotic/Prosthetic Devices or Brace: No Gait Deviations General Gait Pattern Decreased Stride Length, Decreased Feet Clearance,Step- to Gait Factors Limiting Gait Function Factors Limiting Gait Function Decreased Activity Tolerance, Decreased Strength,Difficulty Following Directions, Incoordination,Poor Balance, Poor Safety Awareness Comments Gait Comments pt presents with unsteady shuffling gait and tends to run into wall with FWW requiring assist with maneuvering. M5 PT-IP Objective Assessments Start: 08/25/20 10:30 Freq: NEEDED Status: Active Protocol: Document 08/25/20 11:30 DLM (Rec: 08/25/20 13:17 DLM [id number]) Orientation Orientation/Cognition Level of Alertness Alert Orientation Name,Month,Year Language Function Ability Garbled Speech,Hard of Hearing Comments pt knows she is in the hospital but did not know the name, she does not know how she got here nor why, no unsafe activity attempted but pt has limited awareness of current situation, she did not know time of day, she requested her teeth to eat lunch Gross Range of Motion Upper Extremity ROM Assessment Within Functional Limits Lower Extremity ROM Assessment Within Functional Limits Strength Comments Strength Comments pt not able to fully participate in manual muscle testing this visit, using all extremities functionally, unable to determine if mild strength deficits Coordination Assessment Gross Coordination Gross Coordination WNL Sensation Assessment Comments Sensation Comments no sensory changes reported by patient Muscle Tone Muscle Tone WNL Yes M6 PT-IP Treatment Start: 08/25/20 10:30 Freq: NEEDED Status: Active Protocol: Document 08/25/20 13:45 AB (Rec: 08/25/20 16:04 AB [email or web address]) Physical Therapy Treatment Education Education Provided Safety M7 PT-IP Assessment and Plan Start: 08/25/20 10:30 Freq: NEEDED Status: Active Protocol: Document 08/25/20 13:45 AB (Rec: 08/25/20 16:04 AB [email or web address]) PT Summary Assessment and Plan Potential Rehabilitation Potential Good Summary Impairments ROM,Strength,Balance, Coordination,Sensation, Cognition,Bed Mobility, Transfers,Gait,Activity Tolerance Progress Towards Goals Slow Progress due to Medical Issues,Slow Progress - Other Assessment Summary pt requiring min A with mobility and will require 24/7 assist at this time. pt stated that her daughter in law can assist her at home. caregiver training will be conducted when appropriate as well as stair climbing training. at this time, pt may benefit from acute rehab vs SNF rehab. pt will need HHPT if she goes home. Goals Bed Mobility Goal Independent Transfer Goal Independent,Cane Gait Goal Independent,Cane Gait Distance 150 feet Other Goals up and down 2 steps with rail, cane and CG assist Days to Meet Goals 5 Frequency of Treatment Frequency Of Treatment Twice a Day Treatment Plan Physical Therapy Treatment Plan Bed Mobility Training,Transfer Training,Gait Training, Therapeutic Exercise,Balance Retraining,Discharge Planning, Neuromuscular Re-ed Recommendations To Nursing Amount of Assist Needed 1 Person Assist Discharge Recommendations PT Discharge Recommendations Home with 24/7 Assist,Home Health,SNF Rehab,Acute Rehab Transportation Needs at Discharge Private Vehicle
--- NOTE | 2020-08-25 14:48 | OT.IP.EVAL ---
Current Diagnoses Metabolic encephalopathy (08/24/20) Past Medical History (Last Updated 08/24/20 @ 14:11 by Elisabeth Piña RN) H/O supraventricular tachycardia Hard of hearing HTN (hypertension) Hyperlipidemia Osteoporosis Syncope Vitamin D deficiency, unspecified Surgical History (Last Updated 08/24/20 @ 14:11 by Elisabeth Piña RN) History of lumpectomy History of radiofrequency ablation (RFA) procedure for cardiac arrhythmia Occupational Therapy Inpatient Evaluation/Re-Eval M1 PT/OT-IP Prior Functional Status Start: 08/25/20 10:30 Freq: NEEDED Status: Active Protocol: Document 08/25/20 15:06 CGR (Rec: 08/25/20 15: CGR [id number]) Medical Review Prior Functional Status Medical History Reviewed Yes Diet/Fluid Consistency Regular Communication WNL, dentures Mobility and Gait Independent with cane, goes up stairs at home to second floor shower every other day. Activities of Daily Living and IADL's Independent with basic ADL's, family does advanced ADLs and SBA for showers. Social History Household Members family,children Living Arrangements House Number of Floors (Floors) Two Floors Number of Stairs To Enter/Railing? Unable to obtain information from patient. Home Environment Standard Height Toilet,Tub/ Shower Home Equipment Straight Cane Employment Status Retired Additional Social History Comment Pt has an adjustable bed. States her son will get her a walker if she needs one. M2 OT-IP Current Condition Start: 08/25/20 15:05 Freq: Status: Active Protocol: Document 08/25/20 15:06 CGR (Rec: 08/25/20 15:21 CGR [id number]) Occupational Therapy Current Condition Current Condition Evaluation Date 08/25/20 Treatment Diagnosis B thalamic infarcts with possible hemorrhagic conversion Diagnosis Onset Date 08/25/20 M3 OT- IP Subjective and Pain Start: 08/25/20 15:05 Freq: Status: Active Protocol: Document 08/25/20 15:06 CGR (Rec: 08/25/20 15:21 CGR [id number]) OT- Subjective Occupational Therapy Visit Type Type Initial Evaluation Visit Start Time 14:25 Visit Stop Time 14:48 Total Visit Minutes 23 OT Pain Assessment Pain When Pain Assessed At Rest Pain Present Pain Present Denied Pain M4 OT- IP ADL's Start: 08/25/20 15:05 Freq: Status: Active Protocol: Document 08/25/20 15:06 CGR (Rec: 08/25/20 15:21 CGR [id number]) OT [id number] Comments OT Self-Feeding Comments not meal time but cup to mouth with IND while brushing teeth . OT ADL-Grooming General Evaluation Grooming Ability Standby Assistance Areas Needing Assistance Combing/Brushing Hair,Face Washing Comments OT Grooming Comments standing at sink OT ADL-Oral Care General Eval Oral Care Ability Standby Assistance Areas of Assistance Brushing Teeth,Retrieving/Set- Up of Items Comments Oral Care Comments Pt stood at sink for brushing dentures first in mouth then out of mouth and returned to mouth. OT ADL-Dressing Comments OT Dressing Comments not performed OT ADL-Toileting Comments OT Toileting Comments PT declined need. OT ADL-Bathing Comments OT Bathing Comments not performed M5 OT- IP IADL's Start: 08/25/20 15:05 Freq: Status: Active Protocol: Document 08/25/20 15:06 CGR (Rec: 08/25/20 15:21 CGR [id number]) OT-Instrumental Activities of Daily Living Deficits IADL Deficits Identified Deficits Home Safety Awareness Awareness of Need for Assistance at Home Good Awareness Ability to Problem Solve Emergency Unable to Problem Solve Situations Medication Management Medication Management Caregiver Administers Money Management Money Management Caregiver Provides Assistance Meal Preparation Meal Preparation Caregiver Provides Assist Plater Printed Circuit Board Panels Plater Printed Circuit Board Panels Caregiver Provides Assist Driving Driving Comments PT states that she drives but hasn't in a few months. M6 OT- IP Functional Cognition Start: 08/25/20 15:05 Freq: Status: Active Protocol: Document 08/25/20 15:06 CGR (Rec: 08/25/20 15:21 CGR [id number]) Cognitive Factors Limiting Selfcare Function Cognitive Ability Level of Alertness Alert Patient Orientation Name,Month,Date,Year,Place Attention Span Ability Capable of Focused Attention, Capable of Sustained Attention Ability to Follow Commands Able to Follow One Step Commands with Increased Time, Able to Follow One Step Commands with Repetition OT- Vision and Hearing OT- Hearing Assessment OT- Hearing Assessment Hearing Impaired OT- Vision Assessment Visual Attentiveness Impaired Occular Pursuits WFL Visual [place] WFL Diplopia Present Visual Spacial Neglect Not Applicable Vision Assessment Comments Pt reports diplopia to this telegraphic typewriter operator and participates in testing to rule out visual field cut with inconsistent results Nursing states pt c/o central vision only, P.T. indicates possible L visual field cut. M7 OT- IP Mobility and Balance Start: 08/25/20 15:05 Freq: Status: Active Protocol: Document 08/25/20 15:06 CGR (Rec: 08/25/20 15:21 CGR [id number]) OT- Bed Mobility Assessment Sit to Supine Sit to Supine Assist Standby Assistance Scooting Scooting to Edge of Bed Standby Assistance Scooting Up and Down in Bed Standby Assistance OT-Transfer Assessment Sit to and From Stand Sit to and from Stand Contact Guard Assistance Transfers Transfer Ability Contact Guard Assistance Technique Transfer Destination Bed,Chair Transfer Technique Stand Step Pivot Devices Transfer Assistive Devices Gait Belt,Front Wheeled Walker OT- Gait Assessment Gait Gait Assistance Required: Standby Assistance Assistive Devices Assistive Device Gait Belt,Front Wheeled Walker OT- Balance Assessment Sitting Balance and Reactions Static Sitting Balance Ability Good Dynamic Sitting Balance Ability Good M8 OT- IP Objective Assessments Start: 08/25/20 15:05 Freq: Status: Active Protocol: Document 08/25/20 15:06 CGR (Rec: 08/25/20 15:21 CGR [id number]) OT Gross Range of Motion Upper Extremity Range of Motion Assessment Within Functional Limits OT Strength Comments Strength Comments B 4-/5 OT- Coordination Assessment Upper Extremity Finger to Nose Test Within Functional Limits Finger Tapping Test Within Functional Limits OT-Muscle Tone Assessment Muscle Tone WNL Yes OT Sensation Assessment Edema Edema Absent M9 OT- IP Assessment and Plan Start: 08/25/20 15:05 Freq: Status: Active Protocol: Document 08/25/20 15:06 CGR (Rec: 08/25/20 15:21 R [id number]) OT Summary Assessment and Plan Potential Rehabilitation Potential Good Analytic Complexity at Evaluation Moderate Summary OT Impairments Strength,Balance,Functional Cognition,Functional Mobility, Dressing,Toileting,Bathing, Toilet Transfers,Shower Transfers,Activity Tolerance Progress Towards Goals Slow Progress due to Medical Issues,Slow Progress due to Activity Tolerance Assessment Summary Pt presents as a moderate complexity evaluation s/p admit for AMS and found to have B thalamic infarcts with possible hemorrhagic conversion. Pt appears to be more able as day progresses with more clear speech and ability to follow commands. Pt with generalized weakness and LOWER [place] reporting double vision to this telegraphic typewriter operator. Pt will benefit from continued OT services and will likely be safe for a discharge home with family and 24/7 supervision. Goals Self-Feeding Goal Independent Grooming Goal Independent Dressing Goal Independent Toileting Goal Independent Bathing Goal Standby Assistance Toilet Transfer Goal Independent Shower Transfer Goal Standby Assistance Days to Meet Goals 10 Frequency of Treatment Frequency Of Treatment Once a Day Treatment Plan OT Treatment Plan ADL Training,Functional Cognition Training,Functional Mobility,Vision Retraining, Patient/Family Education, Discharge Planning Other Treatment Recommendations and Next shower, bathroom assessment, Treatment Focus recheck vision Discharge Recommendations OT Discharge Recommendations Home with 24/7 Assist Home Equipment Needs TBD Transportation Needs at Discharge Private Vehicle
[2020-08-25] MEDS: CEFTRIAXONE 1 GM/50 ML FROZ.PIGGY IV (16:40)
[2020-08-26] VITALS (10 sets, daily range): BP systolic 120–166; BP diastolic 60–90; PULSE 63–97; RESP 13–18; TEMP 36–36.8; O2SAT 96–98
--- NOTE | 2020-08-26 00:47 | PC.NURSE ---
Addendum entered by Ros Leal R.N. 08/26/20 03:17: Pt up w/1PA to [facility] [place] at 0300. Conversing normally although speech is slurred. Refusing to do NIHSS at this time stating, I'm tired. Addendum entered by Ros Leal R.N. 08/26/20 01:24: At 0115 pt was alert and oriented. Original Note: at approx 0030, pt was found to be minimally responsive. (Earlier in the night, she was talking and watching TV. Her speech was slurred but she was completely responsive.)She would push my hands away w/a sternal rub but not open her eyes or respond in any other way. MADELINE Darnell reassured me that this pt's type of stroke causes responsiveness to wax and wane and it would be appropriate to note length of time to her becoming more responsive.
[2020-08-26] MEDS: ASPIRIN EC 81 MG TABLET PO (09:44)
[2020-08-26] MEDS: ENOXAPARIN 40 MG/0.4 ML SYRINGE SUBCUT (09:44)
[2020-08-26] MEDS: CALCIUM CARB/VIT D3 500/200 TABLET 1 EACH PO (09:44)
--- NOTE | 2020-08-26 10:56 | PT.IPTN ---
Current Diagnoses Metabolic encephalopathy (08/24/20) Physical Therapy Treatment Note M2 PT-IP Current Condition Start: 08/25/20 10:30 Freq: NEEDED Status: Active Protocol: Document 08/25/20 11:30 DLM (Rec: 08/25/20 13:17 DLM [id number]) Physical Therapy Current Condition Current Condition Evaluation Date 08/25/20 Treatment Diagnosis stroke, impaired balance Onset Date 08/24/20 Precautions Other Precautions she descibes impaired vision on left M3 PT-IP Subjective Start: 08/25/20 10:30 Freq: NEEDED Status: Active Protocol: Document 08/26/20 10:40 KS (Rec: 08/26/20 12:07 KS [id number]) Subjective Physical Therapy Visit Type Type Treatment Note Visit Start Time 10:40 Visit Stop Time 10:56 Total Visit Minutes 16 Number of THREAD SEPARATOR Visits 1 Physical Therapy Visit Comments Patient Comments Pt agreeable to work w/ therapy. M4 PT-IP Mobility and Gait Start: 08/25/20 10:30 Freq: NEEDED Status: Active Protocol: Document 08/26/20 10:40 KS (Rec: 08/26/20 12:07 KS [id number]) PT-Bed Mobility Assessment Supine to Sit Supine to Sit Minimal Assistance,1 Person Assistance,Head of Bed Elevated,Bedrails Scooting Scooting to Edge of Bed Minimal Assistance PT-Transfer Assessment Sit to and From Stand Sit to and from Stand Minimal Assistance,1 Person Assistance,Use of Upper Extremities Equipment Transfer Assistive Device Gait Belt,Front Wheeled Walker Orthotic/Prosthetic Devices or Brace: No Transfers Transfer Destination Chair Transfer Technique ambulated using FWW Transfer Ability Level of Assist Minimal Assistance,1 Person Assistance,Use of Upper Extremities Comments Mobility Comments Pt in bed upon arrival from therapy and agreeable to transfer to chair. Min A and cues for sup<>sit w/ HOB elevated and Min A for scooting to EOB. Once EOB, pt sit<>stand Min A w/ FWW and cues and ambulated ~5ft to chair. Pt stated she was too tired to ambulate further and requested to sit. CGA and cues for repositioning in chair. Pt then completed 1x10 bilateral ankle pumps, SLR, heel slides, and glute sets w/ Mod verbal and tactile cues. Pt vrbalized fatigue and requested to rest. Pt left in chair w/ all needs in reach and chair alarm on. Gait Assessment Gait Gait Assistance Required: Minimum Assistance,1 Person Assist Distance (Feet) 5 Able to Maintain Weight Bearing Status Yes During Gait Assistive Devices Assistive Device Gait Belt,Front Wheeled Walker Orthotic/Prosthetic Devices or Brace: No Gait Deviations General Gait Pattern Decreased Stride Length, Decreased Feet Clearance,Step- to Gait Factors Limiting Gait Function Factors Limiting Gait Function Decreased Activity Tolerance, Decreased Strength,Difficulty Following Directions, Incoordination,Poor Balance, Poor Safety Awareness Comments Gait Comments pt continues to have unsteady shuffling gait and needs Min A for FWW management. M5 PT-IP Objective Assessments Start: 08/25/20 10:30 Freq: NEEDED Status: Active Protocol: Document 08/25/20 11:30 DLM (Rec: 08/25/20 13:17 DLM [id number]) Orientation Orientation/Cognition Level of Alertness Alert Orientation Name,Month,Year Language Function Ability Garbled Speech,Hard of Hearing Comments pt knows she is in the hospital but did not know the name, she does not know how she got here nor why, no unsafe activity attempted but pt has limited awareness of current situation, she did not know time of day, she requested her teeth to eat lunch Gross Range of Motion Upper Extremity ROM Assessment Within Functional Limits Lower Extremity ROM Assessment Within Functional Limits Strength Comments Strength Comments pt not able to fully participate in manual muscle testing this visit, using all extremities functionally, unable to determine if mild strength deficits Coordination Assessment Gross Coordination Gross Coordination WNL Sensation Assessment Comments Sensation Comments no sensory changes reported by patient Muscle Tone Muscle Tone WNL Yes M6 PT-IP Treatment Start: 08/25/20 10:30 Freq: NEEDED Status: Active Protocol: Document 08/26/20 10:40 KS (Rec: 08/26/20 12:07 KS [id number]) Physical Therapy Treatment Exercises Exercises Ankle Pumps,Gluteal Sets,Heel Slides,Straight Leg Raises Education Education Provided Safety M7 PT-IP Assessment and Plan Start: 08/25/20 10:30 Freq: NEEDED Status: Active Protocol: Document 08/26/20 10:40 KS (Rec: 08/26/20 12:07 KS [id number]) PT Summary Assessment and Plan Potential Rehabilitation Potential Good Summary Impairments ROM,Strength,Balance, Coordination,Sensation, Cognition,Bed Mobility, Transfers,Gait,Activity Tolerance Progress Towards Goals Slow Progress due to Medical Issues,Slow Progress - Other Assessment Summary Pt continues to require Min A and cues with bed mobility and sit<>stand w/ FWW. Patient only agreeable to 5 ft ambulation w/ FWW and !x10 bilateral ankle pumps, SLR, heel slides, and glute sets d/ t reported fatigue. Min A during ambulation d/t shuffling gait and FWW management. Patient may be a good candidate for acute rehab or SNF, however if going home will need 24/7 care and HHPT to improve strength and mobility. She will also need to complete caregiver and stair training. Goals Bed Mobility Goal Independent Transfer Goal Independent,Cane Gait Goal Independent,Cane Gait Distance 150 feet Other Goals up and down 2 steps with rail, cane and CG assist Days to Meet Goals 5 Frequency of Treatment Frequency Of Treatment Twice a Day Treatment Plan Physical Therapy Treatment Plan Bed Mobility Training,Transfer Training,Gait Training, Therapeutic Exercise,Balance Retraining,Discharge Planning, Neuromuscular Re-ed Recommendations To Nursing Amount of Assist Needed 1 Person Assist Discharge Recommendations PT Discharge Recommendations Home with 24/7 Assist,Home Health,SNF Rehab,Acute Rehab Transportation Needs at Discharge Private Vehicle
--- NOTE | 2020-08-26 12:44 | PC.NURSE ---
Pt sitting up in bed feeding herself bkfst. Initially this morning Pt was very sleepy and reluctant to open her eyes and talk and speech seemed slurred. This afternoon Pt speech is clear and eyes are wide open and she has been using her cell phone. She states she still has double vision the same as yesterday but she is able to function (feeding, eating, reading,) and follows directions well. She was a 1 person assist to get up to chair and then return to bed. Pt denies needs at this time and agrees to call for assistance as needed. Bed alarm on for safety.
--- NOTE | 2020-08-26 13:33 | PT.IPTN ---
Current Diagnoses Metabolic encephalopathy (08/24/20) Physical Therapy Treatment Note M2 PT-IP Current Condition Start: 08/25/20 10:30 Freq: NEEDED Status: Active Protocol: Document 08/25/20 11:30 DLM (Rec: 08/25/20 13:17 DLM [id number]) Physical Therapy Current Condition Current Condition Evaluation Date 08/25/20 Treatment Diagnosis stroke, impaired balance Onset Date 08/24/20 Precautions Other Precautions she descibes impaired vision on left M3 PT-IP Subjective Start: 08/25/20 10:30 Freq: NEEDED Status: Active Protocol: Document 08/26/20 13:15 KS (Rec: 08/26/20 14:39 KS [id number]) Subjective Physical Therapy Visit Type Type Treatment Note Visit Start Time 13:15 Visit Stop Time 13:33 Total Visit Minutes 18 Number of NAIL KEGGER Visits 2 Physical Therapy Visit Comments Patient Comments Pt agreeable to work w/ therapy. M4 PT-IP Mobility and Gait Start: 08/25/20 10:30 Freq: NEEDED Status: Active Protocol: Document 08/26/20 13:15 KS (Rec: 08/26/20 14:39 KS [id number]) PT-Bed Mobility Assessment Supine to Sit Supine to Sit Minimal Assistance,1 Person Assistance,Head of Bed Elevated,Bedrails Scooting Scooting to Edge of Bed Minimal Assistance PT-Transfer Assessment Sit to and From Stand Sit to and from Stand Contact Guard Assistance,1 Person Assistance,Use of Upper Extremities Equipment Transfer Assistive Device Gait Belt,Front Wheeled Walker Orthotic/Prosthetic Devices or Brace: No Transfers Transfer Destination Chair Transfer Technique ambulated using FWW Transfer Ability Level of Assist Minimal Assistance,1 Person Assistance,Use of Upper Extremities Comments Mobility Comments Pt in bed upon arrival from therapy. Min A for sup<>sit and scooting EOB. CGA and cues for sit<>Stand w/ FWW. Pt then ambulated ~30 ft around room w/ FWW and Min A for FWW management. She then reported fatigue and frustration w/ vision and returned to bed. CGA for sit<>sup. Pt left in bed w/ all needs in reach. Gait Assessment Gait Gait Assistance Required: Minimum Assistance,1 Person Assist Distance (Feet) 30 Able to Maintain Weight Bearing Status Yes During Gait Assistive Devices Assistive Device Gait Belt,Front Wheeled Walker Orthotic/Prosthetic Devices or Brace: No Gait Deviations General Gait Pattern Decreased Stride Length, Decreased Feet Clearance,Step- to Gait Factors Limiting Gait Function Factors Limiting Gait Function Decreased Activity Tolerance, Decreased Strength,Difficulty Following Directions, Incoordination,Poor Balance, Poor Safety Awareness Comments Gait Comments Pt unstead shuffling gait w/ poor FWW management requiring Min A. M5 PT-IP Objective Assessments Start: 08/25/20 10:30 Freq: NEEDED Status: Active Protocol: Document 08/25/20 11:30 DLM (Rec: 08/25/20 13:17 DLM [id number]) Orientation Orientation/Cognition Level of Alertness Alert Orientation Name,Month,Year Language Function Ability Garbled Speech,Hard of Hearing Comments pt knows she is in the hospital but did not know the name, she does not know how she got here nor why, no unsafe activity attempted but pt has limited awareness of current situation, she did not know time of day, she requested her teeth to eat lunch Gross Range of Motion Upper Extremity ROM Assessment Within Functional Limits Lower Extremity ROM Assessment Within Functional Limits Strength Comments Strength Comments pt not able to fully participate in manual muscle testing this visit, using all extremities functionally, unable to determine if mild strength deficits Coordination Assessment Gross Coordination Gross Coordination WNL Sensation Assessment Comments Sensation Comments no sensory changes reported by patient Muscle Tone Muscle Tone WNL Yes M6 PT-IP Treatment Start: 08/25/20 10:30 Freq: NEEDED Status: Active Protocol: Document 08/26/20 13:15 KS (Rec: 08/26/20 14:39 KS [id number]) Physical Therapy Treatment Education Education Provided Safety M7 PT-IP Assessment and Plan Start: 08/25/20 10:30 Freq: NEEDED Status: Active Protocol: Document 08/26/20 13:15 KS (Rec: 08/26/20 14:39 KS [id number]) PT Summary Assessment and Plan Potential Rehabilitation Potential Good Summary Impairments ROM,Strength,Balance, Coordination,Sensation, Cognition,Bed Mobility, Transfers,Gait,Activity Tolerance Progress Towards Goals Slow Progress due to Medical Issues,Slow Progress - Other Assessment Summary Pt Min A for sup<>sit and scooting. CGA for sit<>stand w / FWW. Pt able to tolerate ~30 ft w/ FWW Min A. She has shuffling and unsteady gait and frequently bumps into wells or bed w/ FWW requiring Min A to avoid. Patient may be a good candidate for acute rehab or SNF, however if going home will need 24/7 care and HHPT to improve strength and mobility. She will also need to complete caregiver and stair training. Goals Bed Mobility Goal Independent Transfer Goal Independent,Cane Gait Goal Independent,Cane Gait Distance 150 feet Other Goals up and down 2 steps with rail, cane and CG assist Days to Meet Goals 5 Frequency of Treatment Frequency Of Treatment Twice a Day Treatment Plan Physical Therapy Treatment Plan Bed Mobility Training,Transfer Training,Gait Training, Therapeutic Exercise,Balance Retraining,Discharge Planning, Neuromuscular Re-ed Recommendations To Nursing Amount of Assist Needed 1 Person Assist Discharge Recommendations PT Discharge Recommendations Home with 24/7 Assist,Home Health,SNF Rehab,Acute Rehab Transportation Needs at Discharge Private Vehicle
--- NOTE | 2020-08-26 16:17 | OT.IP.TRT ---
Current Diagnoses Metabolic encephalopathy (08/24/20) Occupational Therapy Treatment Note M2 OT-IP Current Condition Start: 08/25/20 15:05 Freq: Status: Active Protocol: Document 08/25/20 15:06 CGR (Rec: 08/25/20 15:21 CGR [id number]) Occupational Therapy Current Condition Current Condition Evaluation Date 08/25/20 Treatment Diagnosis B thalamic infarcts with possible hemorrhagic conversion Diagnosis Onset Date 08/25/20 M3 OT- IP Subjective and Pain Start: 08/25/20 15:05 Freq: Status: Active Protocol: Document 08/26/20 17:35 CGR (Rec: 08/26/20 17:36 CGR [id number]) OT- Subjective Occupational Therapy Visit Type Type Administrative Note Notes Attempted to see pt in late PM . Pt sleeping soundly upon waking was unable to remain awake. Will hold and continue to follow.
--- NOTE | 2020-08-26 17:35 | PM.PN.1 ---
Subjective Subjective Date Patient Seen: 08/26/20 Time Patient Seen: 17:35 Interval history: Nayeli Vazquez is a 75-year-old female with a past medical history of hypertension, hyperlipidemia, prior SVT ablation who was admitted with a she presumed toxic metabolic encephalopathy, but was found on MRI to have bilateral thalamic strokes. Initially this morning she remained minimally responsive, improved later in the day, then is quite sleepy towards night time again. She denied any abdominal pain, dysuria, or urinary frequency. She had had no palpitations or shortness of breath. She feels a bit stronger today and is still having some difficulties with her peripheral vision today. Exam Vital Signs (past 8 hours): - 08/26/20 14:00 08/26/20 16:09 Temperature 98.3 F 97.3 F L Pulse Rate 97 H 68 Respiratory Rate 16 18 Blood Pressure 166/83 H 150/85 H Pulse Oximetry 97 98 Oxygen Delivery Method Room Air Oxygen Flow Rate 0 Narrative Exam Narrative: GENERAL APPEARANCE: Well developed, well nourished, in no acute distress. SKIN: Inspection of the skin reveals no rashes, ulcerations or petechiae. HEENT: Normocephalic atraumatic, extraocular muscles are intact, oropharynx today without oral lesions but mucosa is slightly dry, neck is supple without adenopathy NECK: Supple and symmetric. There was no thyroid enlargement, and no tenderness, or masses were felt. CHEST: Normal AP diameter and normal contour without any kyphoscoliosis. LUNGS: Auscultation of the lungs revealed no wheezes, rhonchi, or rales. CARDIOVASCULAR: There was a regular rate and rhythm without any murmurs, gallops, rubs. Peripheral pulses were 2+ and symmetric. ABDOMEN: Soft and nontender with normal bowel sounds. No ascites was noted. MUSCULOSKELETAL: There was no tenderness or effusions noted. Muscle strength and tone were normal. EXTREMITIES: No cyanosis, clubbing or edema. NEUROLOGIC: waxes and wanes. When Alert, oriented x 3. Normal affect. Strength is +5/5 in the Upper Extremities and Lower Extremities Bilaterally. Sensation to touch was normal. Left upper visual field partial hemianopia and mildly slurred speech Objective Labs Result Diagrams: 08/25/20 08:24 08/25/20 08:24 [facility] Medical History (Updated 08/24/20 @ 14:11 by Elisabeth Piña RN) H/O supraventricular tachycardia Hard of hearing HTN (hypertension) Hyperlipidemia Osteoporosis Syncope Vitamin D deficiency, unspecified Surgical History (Updated 08/24/20 @ 14:11 by Elisabeth Piña RN) History of lumpectomy History of radiofrequency ablation (RFA) procedure for cardiac arrhythmia Social History household members: family and children Smoking Status: Never smoker Assessment & Plan Assessment & Plan narrative: This is a 75-year-old female with a past medical history of hypertension, hyperlipidemia, prior SVT status post ablation, previous atrial flutter who presented to the emergency room with altered mental status and is admitted for an acute CVA. 1. Acute CVA, present on admission -MRI brain: Bilateral acute to early subacute infarcts of the thalami, medial left midbrain, and left cerebellar hemisphere. Given the multifocal distribution, the findings are suggestive of embolic disease. Foci of magnetic susceptibility within the left thalamic infarct compatible with hemorrhagic transformation, likely reflecting petechial hemorrhage.Mild to moderate cerebral volume loss and chronic white matter small vessel ischemic changes. No high-grade stenosis or occlusion of the central intracranial arteries. No high-grade stenosis or occlusion of the head and neck arteries. The carotid bulbs appear widely patent. - I spoke to Neurosurgery at [facility], Dr. Duckworth, who reviewed the MRI but did not believe that there was hemorrhagic conversion at this time. He recommended possible transfer to a stroke center with possible interventional capabilities. I then spoke to the neuro technical support intern at [facility], Dr. Alfaro, whom did not think that intervention would provide any benefit given her last known normal and time frame. He recommended physical and occupational therapy consults, speech therapy and to start aspirin. He recommended waiting 2 weeks prior to starting anticoagulation for atrial flutter. At this time he did not recommend seizure prophylaxis. He recommended repeating a head CT in a couple of weeks or if there is any mental status changes or worsening. - her mental status has improved this morning, with residual visual field deficit and mild slurred speech. Passed speech eval, started diet. -continue PT/OT/Speech. 2. Hypertension, chronic - will resume home BP medications to take when she is alert. Will restart losartan today at 50 mg instead of 100 given mild HTN today. 3. Atrial flutter, new diagnosis, likely paroxysmal -as an outpatient patient recently concluded a ZIO patch and is awaiting the results according to her daughter. -EKG shows atrial flutter with variable conduction with a controlled rate. No evidence of ischemia. -However, EKG performed 01/04 shows atrial flutter and presumed chronic at that time. -she has a reported history of SVT ablation per PMD documentation in 2018. -CHADS-VASC score of 6. Will need anticoagulation to start in 2 weeks given her acute infarcts. 4. HLD - continue home statin 5. Elevated troponin, acute, present on admission - no evidence of ischemia on EKG, suspect elevated in the setting of arrythmia. Troponin did downtrend, peaked at 0.089. 6. Acute cystitis, present on admission - continued ceftriaxone 1g daily x2 days. Lost IV, then difficult to replace, will switch to oral cefdinir x2 doses to complete treatment. Code: Full, surrogate decision maker is next of kin, daughter. Son is support person in the hospital, updates communicated to him this evening. DVT; Lovenox daily, asa daily. Start full AC in 2 weeks per above neurology recommendations. Dispo: inpatient status, unclear dispo if home or to acute rehab or SNF, ideally acute rehab following stroke. Quality VTE Deep Vein Thrombosis/Pulmonary Embolism Present on Admission: No
[2020-08-26] MEDS: LOSARTAN 50 MG TABLET PO (19:16)
[2020-08-26] MEDS: CEFDINIR 300 MG CAPSULE PO (21:20)
[2020-08-27] VITALS (11 sets, daily range): BP systolic 129–144; BP diastolic 65–87; PULSE 59–70; RESP 13–16; TEMP 36.3–36.9; O2SAT 95–99
--- NOTE | 2020-08-27 06:51 | PC.NURSE ---
patient slept soundly most of night. This morning bed alarming and found patient standing at side of bed stating she had to go to the bathroom. Assisted with walker. Has difficulty due to visual field loss so needs help directing walker in right direction. Speech is slurred. Patient oriented except to day of month/week and didn't know she was in the hospital or why. Breath sounds CTA with RA sat of 98%. HRR. BT present and abdomen is soft. Incontinent of urine but also urinating on toilet. Denies pain. Fall risk score is high and bed alarm is activated.
[2020-08-27] MEDS: CALCIUM CARB/VIT D3 500/200 TABLET 1 EACH PO (08:59)
[2020-08-27] MEDS: ATORVASTATIN 20 MG TABLET 10 MG PO (08:59)
[2020-08-27] MEDS: ASPIRIN EC 81 MG TABLET PO (08:59)
[2020-08-27] MEDS: ENOXAPARIN 40 MG/0.4 ML SYRINGE SUBCUT (08:59)
[2020-08-27] MEDS: LOSARTAN 50 MG TABLET PO (08:59)
[2020-08-27] MEDS: CEFDINIR 300 MG CAPSULE PO (09:00)
--- NOTE | 2020-08-27 10:31 | OT.IP.TRT ---
Current Diagnoses Metabolic encephalopathy (08/24/20) Occupational Therapy Treatment Note M2 OT-IP Current Condition Start: 08/25/20 15:05 Freq: Status: Active Protocol: Document 08/25/20 15:06 CGR (Rec: 08/25/20 15:21 CGR [id number]) Occupational Therapy Current Condition Current Condition Evaluation Date 08/25/20 Treatment Diagnosis B thalamic infarcts with possible hemorrhagic conversion Diagnosis Onset Date 08/25/20 M3 OT- IP Subjective and Pain Start: 08/25/20 15:05 Freq: Status: Active Protocol: Document 08/27/20 12:07 CGR (Rec: 08/27/20 12:17 CGR [id number]) OT- Subjective Occupational Therapy Visit Type Type Progress Note Visit Start Time 09:50 Visit Stop Time 10:31 Total Visit Minutes 41 Notes Provided pt with clear glasses and adjusted tape to assist with double vision. OT Pain Assessment Pain When Pain Assessed At Rest Pain Present Pain Present Denied Pain M4 OT- IP ADL's Start: 08/25/20 15:05 Freq: Status: Active Protocol: Document 08/27/20 12:07 CGR (Rec: 08/27/20 12:17 CGR [id number]) OT [id number] Comments OT Self-Feeding Comments Not meal time OT ADL-Grooming Comments OT Grooming Comments Not performed OT ADL-Oral Care General Eval Oral Care Ability Standby Assistance Areas of Assistance Managing Dentures Comments Oral Care Comments Standing at sink pt removed dentures, reached for denture cup in her periphery and washed off dentures prior to putting in cup with water. OT ADL-Dressing General Eval Lower Body Dressing Ability Minimal Assistance,Moderate Assistance Areas Needing Assistance Underpants/Brief Comments OT Dressing Comments Pt states that her briefs keep falling down. Doffed minimally wet briefs and pulled on pull up type brief. Pt needed assist with threading both feet after given ample time to attempt without assist. OT ADL-Toileting General Evaluation Toileting Ability Standby Assistance Comments OT Toileting Comments pt urinated seated on toilet OT ADL-Bathing Comments OT Bathing Comments not performed M5 OT- IP IADL's Start: 08/25/20 15:05 Freq: Status: Active Protocol: Document 08/25/20 15:06 CGR (Rec: 08/25/20 15:21 CGR [id number]) OT-Instrumental Activities of Daily Living Deficits IADL Deficits Identified Deficits Home Safety Awareness Awareness of Need for Assistance at Home Good Awareness Ability to Problem Solve Emergency Unable to Problem Solve Situations Medication Management Medication Management Caregiver Administers Money Management Money Management Caregiver Provides Assistance Meal Preparation Meal Preparation Caregiver Provides Assist Loan Closer Loan Closer Caregiver Provides Assist Driving Driving Comments PT states that she drives but hasn't in a few months. M6 OT- IP Functional Cognition Start: 08/25/20 15:05 Freq: Status: Active Protocol: Document 08/25/20 15:06 CGR (Rec: 08/25/20 15:21 CGR [id number]) Cognitive Factors Limiting Selfcare Function Cognitive Ability Level of Alertness Alert Patient Orientation Name,Month,Date,Year,Place Attention Span Ability Capable of Focused Attention, Capable of Sustained Attention Ability to Follow Commands Able to Follow One Step Commands with Increased Time, Able to Follow One Step Commands with Repetition OT- Vision and Hearing OT- Hearing Assessment OT- Hearing Assessment Hearing Impaired OT- Vision Assessment Visual Attentiveness Impaired Occular Pursuits WFL Visual [place] WFL Diplopia Present Visual Spacial Neglect Not Applicable Vision Assessment Comments Pt reports diplopia to this sports book writer and participates in testing to rule out visual field cut with inconsistent results Nursing states pt c/o central vision only, P.T. indicates possible L visual field cut. M7 OT- IP Mobility and Balance Start: 08/25/20 15:05 Freq: Status: Active Protocol: Document 08/27/20 12:07 CGR (Rec: 08/27/20 12:17 CGR [id number]) OT- Bed Mobility Assessment Rolling Type of Rolling Roll to Right Level of Assistance Standby Assistance Supine to Sit Supine to Sit Assist Minimal Assistance Scooting Scooting to Edge of Bed Standby Assistance OT-Transfer Assessment Sit to and From Stand Sit to and from Stand Contact Guard Assistance Transfers Transfer Ability Contact Guard Assistance, Minimal Assistance Technique Transfer Destination Bed,Chair,Toilet Transfer Technique Stand Step Pivot Devices Transfer Assistive Devices Gait Belt,Front Wheeled Walker Comments Mobility Comments Mobility around the room, pt does well with sit to stand but needed physical assist for sup to sit and for mobility with the walker. OT- Gait Assessment Gait Gait Assistance Required: Minimum Assistance Assistive Devices Assistive Device Gait Belt,Front Wheeled Walker Comments Gait Ability Comments Mobility in sparks to test new glasses. Pt demonstrates poor balance without the walker and reaching outside of her base of support to hold onto wall etc. Pt needs min a for mobility with walker as she gets the wheel caught manuvering and reminders for safe use of the walker. OT- Balance Assessment Sitting Balance and Reactions Static Sitting Balance Ability Good Dynamic Sitting Balance Ability Fair M8 OT- IP Objective Assessments Start: 08/25/20 15:05 Freq: Status: Active Protocol: Document 08/25/20 15:06 CGR (Rec: 08/25/20 15:21 CGR [id number]) OT Gross Range of Motion Upper Extremity Range of Motion Assessment Within Functional Limits OT Strength Comments Strength Comments B 4-/5 OT- Coordination Assessment Upper Extremity Finger to Nose Test Within Functional Limits Finger Tapping Test Within Functional Limits OT-Muscle Tone Assessment Muscle Tone WNL Yes OT Sensation Assessment Edema Edema Absent M9 OT- IP Assessment and Plan Start: 08/25/20 15:05 Freq: Status: Active Protocol: Document 08/27/20 12:07 CGR (Rec: 08/27/20 12:17 CGR [id number]) OT Summary Assessment and Plan Potential Rehabilitation Potential Good Analytic Complexity at Evaluation Moderate Summary OT Impairments Strength,Balance,Functional Cognition,Functional Mobility, Dressing,Toileting,Bathing, Toilet Transfers,Shower Transfers,Activity Tolerance Progress Towards Goals Slow Progress due to Medical Issues,Slow Progress due to Activity Tolerance Assessment Summary Pt presents as a moderate complexity evaluation s/p admit for AMS and found to have B thalamic infarcts with possible hemorrhagic conversion. Pt participated today with taping of glasses for diplopia. Tape was adjust multiple times to achieve clear singular vision when looking straight, right and left. Per pt report, no further double vision but her mobility still appears impacted by visual deficit. Will contiue to assess for changes to glasses as needed. Goals Self-Feeding Goal Independent Grooming Goal Independent Dressing Goal Independent Toileting Goal Independent Bathing Goal Standby Assistance Toilet Transfer Goal Independent Shower Transfer Goal Standby Assistance Days to Meet Goals 10 Frequency of Treatment Frequency Of Treatment Once a Day Treatment Plan OT Treatment Plan ADL Training,Functional Cognition Training,Functional Mobility,Vision Retraining, Patient/Family Education, Discharge Planning Other Treatment Recommendations and Next shower, lower body dressing, Treatment Focus recheck vision Discharge Recommendations OT Discharge Recommendations Home with 24/ Assist Home Equipment Needs TBD Transportation Needs at Discharge Private Vehicle
--- NOTE | 2020-08-27 11:34 | PT.IPTN ---
Current Diagnoses Metabolic encephalopathy (08/24/20) Physical Therapy Treatment Note M2 PT-IP Current Condition Start: 08/25/20 10:30 Freq: NEEDED Status: Active Protocol: Document 08/25/20 11:30 DLM (Rec: 08/25/20 13:17 DLM [id number]) Physical Therapy Current Condition Current Condition Evaluation Date 08/25/20 Treatment Diagnosis stroke, impaired balance Onset Date 08/24/20 Precautions Other Precautions she descibes impaired vision on left M3 PT-IP Subjective Start: 08/25/20 10:30 Freq: NEEDED Status: Active Protocol: Document 08/27/20 11:21 CLB (Rec: 08/27/20 11:46 CLB [id number]) Subjective Physical Therapy Visit Type Type Treatment Note Visit Start Time 11:21 Visit Stop Time 11:35 Total Visit Minutes 14 Number of V BELT BUILDER Visits 3 Physical Therapy Visit Comments Patient Comments Pt agreeable to work w/ therapy. Therapy Pain Assessment Pain Present Pain Present Denied Pain M4 PT-IP Mobility and Gait Start: 08/25/20 10:30 Freq: NEEDED Status: Active Protocol: Document 08/27/20 11:21 CLB (Rec: 08/27/20 11:46 CLB [id number]) PT-Bed Mobility Assessment Supine to Sit Supine to Sit Standby Assistance Scooting Scooting to Edge of Bed Standby Assistance PT-Transfer Assessment Sit to and From Stand Sit to and from Stand Contact Guard Assistance,1 Person Assistance,Use of Upper Extremities Equipment Transfer Assistive Device Gait Belt,Front Wheeled Walker Orthotic/Prosthetic Devices or Brace: No Transfers Transfer Destination Chair Transfer Technique ambulated using FWW Transfer Ability Level of Assist Contact Guard Assistance,1 Person Assistance,Use of Upper Extremities Comments Mobility Comments Pt in bed able to sit and scoot to EOB SBA and stand CGA . Pt ambulated ~40ft in room with CGA and required cues to avoid running into object in room. Pt then sat in chair and was able to scoot herself back in chair SBA. Pt left with reclilned chair, alarm on and all needs within reach, APPLICATION DBA present. Gait Assessment Gait Gait Assistance Required: Minimum Assistance,1 Person Assist Distance (Feet) 40 Able to Maintain Weight Bearing Status Yes During Gait Assistive Devices Assistive Device Gait Belt,Front Wheeled Walker Orthotic/Prosthetic Devices or Brace: No Gait Deviations General Gait Pattern Decreased Stride Length, Decreased Feet Clearance Factors Limiting Gait Function Factors Limiting Gait Function Decreased Activity Tolerance, Decreased Strength,Difficulty Following Directions, Incoordination,Poor Balance, Poor Safety Awareness Comments Gait Comments Pt with small step thru gait pattern and cues to avoid obstacles in room. M5 PT-IP Objective Assessments Start: 08/25/20 10:30 Freq: NEEDED Status: Active Protocol: Document 08/25/20 11:30 DLM (Rec: 08/25/20 13:17 DLM [id number]) Orientation Orientation/Cognition Level of Alertness Alert Orientation Name,Month,Year Language Function Ability Garbled Speech,Hard of Hearing Comments pt knows she is in the hospital but did not know the name, she does not know how she got here nor why, no unsafe activity attempted but pt has limited awareness of current situation, she did not know time of day, she requested her teeth to eat lunch Gross Range of Motion Upper Extremity ROM Assessment Within Functional Limits Lower Extremity ROM Assessment Within Functional Limits Strength Comments Strength Comments pt not able to fully participate in manual muscle testing this visit, using all extremities functionally, unable to determine if mild strength deficits Coordination Assessment Gross Coordination Gross Coordination WNL Sensation Assessment Comments Sensation Comments no sensory changes reported by patient Muscle Tone Muscle Tone WNL Yes M6 PT-IP Treatment Start: 08/25/20 10:30 Freq: NEEDED Status: Active Protocol: Document 08/26/20 13:15 KS (Rec: 08/26/20 14:39 [place] [id number]) Physical Therapy Treatment Education Education Provided Safety M7 PT-IP Assessment and Plan Start: 08/25/20 10:30 Freq: NEEDED Status: Active Protocol: Document 08/27/20 11:21 CLB (Rec: 08/27/20 11:46 CLB [id number]) PT Summary Assessment and Plan Summary Impairments ROM,Strength,Balance, Coordination,Sensation, Cognition,Bed Mobility, Transfers,Gait,Activity Tolerance Progress Towards Goals Progressing Toward Goals,Slow Progress due to Medical Issues ,Slow Progress - Other Assessment Summary Pt improving with bed mobility was able to sit and get to EOB SBA, Pt requires cues during gait to prevent obstacles. Pt improving with steadiness during gait. Goals Bed Mobility Goal Independent Transfer Goal Independent,Cane Gait Goal Independent,Cane Gait Distance 150 feet Other Goals up and down 2 steps with rail, cane and CG assist Days to Meet Goals 5 Frequency of Treatment Frequency Of Treatment Twice a Day Treatment Plan Physical Therapy Treatment Plan Bed Mobility Training,Transfer Training,Gait Training, Therapeutic Exercise,Balance Retraining,Discharge Planning, Neuromuscular Re-ed Recommendations To Nursing Amount of Assist Needed 1 Person Assist Discharge Recommendations PT Discharge Recommendations Home with 10/03 Assist,Home Health,SNF Rehab,Acute Rehab Transportation Needs at Discharge Private Vehicle
--- NOTE | 2020-08-27 15:14 | PT-IP ANOTE ---
Attempted to wake pt, pt did not open eyes but responded verbally by stating can't open eyes sleeping, NICHOLE Wylie informed while working on C.O.W outside [address]. Will attempt to see pt in AM for therapy session.
--- NOTE | 2020-08-27 15:32 | CM.DPC ---
DCP: continued: Discussed POC today with PT/OT and Dr. Teixeira. Pt is now at a point when home with family care and HH services is considered the most appropriate d/c dispo setting. Dr. Teixeira says he anticipates pt will be ready for d/c by tomorrow. Have spoken now with pt's son to update him. He is very agreeable to same. Explained the HH process and he is pleased that this rehab can be provided at home. Agency choice list: discussed. Pt has never had HH. Went to vendor list: [facility] now has referral via phone conversation with Vik and initial referral info plus specific HH RN/PT/OT and Face/Face is now faxed to [facility]. Will need d/c summary when pt does discharge. PT is recommending a FWW at d/c. Son reports they do not have one as his mother uses no AD. He would like to have one issued here from PT consignment closet and bill to pt's insurance. Order for this is obtained and given to PT Sara so that this dept can issue it at d/c. Pt's son is aware that d/c time tomorrow is unknown. Advised him to call the hospital tomorrow morning and talk with the RN caring for pt. His also has the # for the CM/DCplanning desk. P: home when stable: [facility] and family care.
--- NOTE | 2020-08-27 16:37 | P.PN_ITS ---
Subjective Subjective Date Patient Seen: 08/27/20 Time Patient Seen: 11:30 Interval history: Nayeli Vazquez is a 75-year-old female with a past medical history of hypertension, hyperlipidemia, prior SVT ablation who was admitted with a she presumed toxic metabolic encephalopathy, but was found on MRI to have bilateral thalamic strokes. Initially this morning she remained minimally responsive, improved later in the day, then is quite sleepy towards night time again. Generally this has continued to improve. She denied any abdominal pain, dysuria, or urinary frequency. She had had no palpitations or shortness of breath. She feels a bit stronger today and is still having some difficulties with her peripheral vision today. This was able to be improved with occupational therapy interventions. Plan for discharge home with home health tomorrow. Exam Vital Signs (past 8 hours): - 08/27/20 08:41 08/27/20 08:59 08/27/20 11:18 Temperature 97.8 F 97.4 F L Pulse Rate 59 L 65 Respiratory Rate 14 13 Blood Pressure 140/83 140/83 144/78 H Pulse Oximetry 97 99 08/27/20 12:00 Temperature Pulse Rate Respiratory Rate Blood Pressure Pulse Oximetry 96 Oxygen Delivery Method Room Air Oxygen Flow Rate 0 Narrative Exam Narrative: GENERAL APPEARANCE: Well developed, well nourished, in no acute distress. SKIN: Inspection of the skin reveals no rashes, ulcerations or petechiae. HEENT: Normocephalic atraumatic, extraocular muscles are intact, oropharynx today without oral lesions but mucosa is slightly dry, neck is supple without adenopathy NECK: Supple and symmetric. There was no thyroid enlargement, and no tenderness, or masses were felt. CHEST: Normal AP diameter and normal contour without any kyphoscoliosis. LUNGS: Auscultation of the lungs revealed no wheezes, rhonchi, or rales. CARDIOVASCULAR: There was a regular rate and rhythm without any murmurs, gallops, rubs. Peripheral pulses were 2+ and symmetric. ABDOMEN: Soft and nontender with normal bowel sounds. No ascites was noted. MUSCULOSKELETAL: There was no tenderness or effusions noted. Muscle strength and tone were normal. EXTREMITIES: No cyanosis, clubbing or edema. NEUROLOGIC: waxes and wanes. When Alert, oriented x 3. Normal affect. Strength is +5/5 in the Upper Extremities and Lower Extremities Bilaterally. Sensation to touch was normal. Left upper visual field partial hemianopia and mildly slurred speech Objective Labs Result Diagrams: 08/25/20 08:24 08/25/20 08:24 [facility] Medical History (Updated 08/24/20 @ 14:11 by Elisabeth Piña RN) H/O supraventricular tachycardia Hard of hearing HTN (hypertension) Hyperlipidemia Osteoporosis Syncope Vitamin D deficiency, unspecified Surgical History (Updated 08/24/20 @ 14:11 by Elisabeth Piña RN) History of lumpectomy History of radiofrequency ablation (RFA) procedure for cardiac arrhythmia Social History household members: family and children Smoking Status: Never smoker Assessment & Plan Assessment & Plan narrative: This is a 75-year-old female with a past medical history of hypertension, hyperlipidemia, prior SVT status post ablation, previous atrial flutter who presented to the emergency room with altered mental status and is admitted for an acute CVA. 1. Acute CVA, present on admission -MRI brain: Bilateral acute to early subacute infarcts of the thalami, medial left midbrain, and left cerebellar hemisphere. Given the multifocal distributi on, the findings are suggestive of embolic disease. Foci of magnetic susceptibility within the left thalamic infarct compatible with hemorrhagic transformation, likely reflecting petechial hemorrhage.Mild to moderate cerebral volume loss and chronic white matter small vessel ischemic changes. No high- grade stenosis or occlusion of the central intracranial arteries. No high-grade stenosis or occlusion of the head and neck arteries. The carotid bulbs appear widely patent. - spoke to Neurosurgery at [facility], Dr. Duckworth, who reviewed the MRI but did not believe that there was hemorrhagic conversion at this time. He recommended possible transfer to a stroke center with possible interventional capabilities. I then spoke to the neuro chemical plant technical director at [facility], Dr. Alfaro, whom did not think that intervention would provide any benefit given her last known normal and time frame. He recommended physical and occupational therapy consults, speech therapy and to start aspirin. He recommended waiting 2 weeks prior to starting anticoagulation for atrial flutter. At this time he did not recommend seizure prophylaxis. He recommended repeating a head CT in a couple of weeks or if there is any mental status changes or worsening. - her mental status has continued, with residual visual field deficit improved with OT interventions and mild slurred speech. Passed speech eval, started diet. -continue PT/OT/Speech. 2. Hypertension, chronic - Restarted losartan at 50 mg instead of 100 given mild HTN, still elevated today will increase back to home dosing tomorrow AM. 3. Atrial flutter, new diagnosis, likely paroxysmal -as an outpatient patient recently concluded a ZIO patch and is awaiting the results according to her daughter. -EKG shows atrial flutter with variable conduction with a controlled rate. No evidence of ischemia. -However, EKG performed 01/04 shows atrial flutter and presumed chronic at that time. -she has a reported history of SVT ablation per PMD documentation in 2018. -CHADS-VASC score of 6. Will need anticoagulation to start in 2 weeks given her acute infarcts by her PMD if desired. 4. HLD - continue home statin 5. Elevated troponin, acute, present on admission - no evidence of ischemia on EKG, suspect elevated in the setting of arrythmia. Troponin did downtrend, peaked at 0.089. 6. Acute cystitis, present on admission, resolved - continued ceftriaxone 1g daily x2 days. Lost IV, then difficult to replace, switched to oral cefdinir x2 doses to complete treatment. Code: Full, surrogate decision maker is next of kin, daughter. Son is support person in the hospital. DVT; Lovenox daily, asa daily. Start full AC in 2 weeks per above neurology rec ommendations. Dispo: inpatient status, plan for discharge home with home health tomorrow. Quality VTE Deep Vein Thrombosis/Pulmonary Embolism Present on Admission: No
--- NOTE | 2020-08-27 18:04 | PC.NURSE ---
Addendum entered by Ghislaine José R.N. 08/27/20 21:19: Pt resting at intervals this evening. Arouses to verbal commands slowly. Repositioned frequently. Call light w/in reach, bed alarm on for pt safety. Continue w/plan of care. Original Note: Pt sleepy, however responds to verbal commands. Pt denies discomfort. SpO2 95% RA States that she still has some double vision in left eye. Call light w/in reach, bed alarm on for pt safety.
[2020-08-28 00:25] VITALS: BP 144/87; PULSE 61; RESP 16; TEMP 36.2; O2SAT 95
--- NOTE | 2020-08-28 00:44 | PC.NURSE ---
Addendum entered by Libra Canchola R.N. 08/28/20 01:14: Addendum to 0100 The patient's right eye was open during this time, but she kept her left eye shut due to not wanting to experience the double-vision she has been experiencing in that eye. Addendum entered by Libra Canchola R.N. 08/28/20 01:10: 0100 While sitting outside her door, I heard activity in the room. Upon checking on the patient, I found her sitting up in bed with legs dangling off the side. She said, I have to go to the bathroom. Her speech was coherent this time. I assisted her to the toilet with a front-wheeled walker. The patient appeared quite steady on her feet, and I encouraged her to move slowly. Assisted her back to bed and turned the bed alarm back on. Original Note: 2300 Received safe patient hand-off. The patient is currently sleeping in the supine position. She has no IV access, and is on room air. Upon assessment, she is responsive to touch and sound but does not open her eyes for me. When asked if she knew where she was, her speech was garbled and incomprehensible. I asked, Are you at your home? She nodded, no. I asked, Are you at the hospital? She nodded, yes. She denies pain, but she localized to her left shoulder when I touched it and said, ouch. She has multiple bruises on bilateral arms. Vital signs WNL. Door is open, and bed alarm on. No s/sx of distress.
[2020-08-28 05:40] VITALS: BP 146/91; PULSE 64; RESP 16; TEMP 36.1; O2SAT 98
[2020-08-28] MEDS: ATORVASTATIN 20 MG TABLET 10 MG PO (09:24)
[2020-08-28] MEDS: LOSARTAN 50 MG TABLET 100 MG PO (09:25)
[2020-08-28] MEDS: ASPIRIN EC 81 MG TABLET PO (09:25)
[2020-08-28] MEDS: CALCIUM CARB/VIT D3 500/200 TABLET 1 EACH PO (09:25)
[2020-08-28] MEDS: ENOXAPARIN 40 MG/0.4 ML SYRINGE SUBCUT (09:25)
[2020-08-28 09:32] VITALS: BP 152/87; PULSE 69; RESP 16; TEMP 36.4; O2SAT 98
[2020-08-28] MEDS: BISACODYL 10 MG SUPP PR (09:57)
--- NOTE | 2020-08-28 10:07 | PT.IPTN ---
Current Diagnoses Metabolic encephalopathy (08/24/20) Physical Therapy Treatment Note M2 PT-IP Current Condition Start: 08/25/20 10:30 Freq: NEEDED Status: Active Protocol: Document 08/25/20 11:30 DLM (Rec: 08/25/20 13:17 DLM [id number]) Physical Therapy Current Condition Current Condition Evaluation Date 08/25/20 Treatment Diagnosis stroke, impaired balance Onset Date 08/24/20 Precautions Other Precautions she descibes impaired vision on left M3 PT-IP Subjective Start: 08/25/20 10:30 Freq: NEEDED Status: Active Protocol: Document 08/28/20 09:51 CLB (Rec: 08/28/20 13:24 CLB [id number]) Subjective Physical Therapy Visit Type Type Treatment Note Visit Start Time 09:51 Visit Stop Time 10:07 Total Visit Minutes 18 Number of FIBERGLASS GRINDER Visits 4 Physical Therapy Visit Comments Patient Comments Pt agreeable to work w/ therapy. Therapy Pain Assessment Pain Present Pain Present Denied Pain M4 PT-IP Mobility and Gait Start: 08/25/20 10:30 Freq: NEEDED Status: Active Protocol: Document 08/28/20 09:51 CLB (Rec: 08/28/20 13:24 CLB [id number]) PT-Bed Mobility Assessment Supine to Sit Supine to Sit Minimal Assistance,1 Person Assistance Scooting Scooting to Edge of Bed Standby Assistance PT-Transfer Assessment Sit to and From Stand Sit to and from Stand Contact Guard Assistance,1 Person Assistance,Use of Upper Extremities Equipment Transfer Assistive Device Gait Belt,Front Wheeled Walker Orthotic/Prosthetic Devices or Brace: No Transfers Transfer Destination Chair Transfer Technique ambulated using FWW Transfer Ability Level of Assist Contact Guard Assistance,1 Person Assistance,Use of Upper Extremities Comments Mobility Comments Pt required Min A sup-sit and then was able to scoot to EOB SBA. Pt stood CGA and ambulated to toilet sitting SBA. Pt removed her brief and required assist to sweta new brief in sitting, pt performed pericare. Pt stood CGA and walked to sink, pt required cues to push walker to counter and stand inside walker for safety. Pt stood SBA washing hands and rinsing dentures. Pt then ambulated in room only 10ft before she stated her legs were tired and she needed to sit down. Pt sat in chair, legs elevated and alarm on, call light near. Gait Assessment Gait Gait Assistance Required: Contact Guard Assist,1 Person Assist Distance (Feet) 30 Able to Maintain Weight Bearing Status Yes During Gait Assistive Devices Assistive Device Gait Belt,Front Wheeled Walker Orthotic/Prosthetic Devices or Brace: No Gait Deviations General Gait Pattern Decreased Stride Length, Decreased Feet Clearance Factors Limiting Gait Function Factors Limiting Gait Function Decreased Activity Tolerance, Decreased Strength,Difficulty Following Directions, Incoordination,Poor Balance, Poor Safety Awareness Comments Gait Comments Pt with small step thru gait pattern and fatigued after ~ 10ft of gait. Pt had already ambulated to bathroom and stood at sink. M5 PT-IP Objective Assessments Start: 08/25/20 10:30 Freq: NEEDED Status: Active Protocol: Document 08/25/20 11:30 DLM (Rec: 08/25/20 13:17 DLM [id number]) Orientation Orientation/Cognition Level of Alertness Alert Orientation Name,Month,Year Language Function Ability Garbled Speech,Hard of Hearing Comments pt knows she is in the hospital but did not know the name, she does not know how she got here nor why, no unsafe activity attempted but pt has limited awareness of current situation, she did not know time of day, she requested her teeth to eat lunch Gross Range of Motion Upper Extremity ROM Assessment Within Functional Limits Lower Extremity ROM Assessment Within Functional Limits Strength Comments Strength Comments pt not able to fully participate in manual muscle testing this visit, using all extremities functionally, unable to determine if mild strength deficits Coordination Assessment Gross Coordination Gross Coordination WNL Sensation Assessment Comments Sensation Comments no sensory changes reported by patient Muscle Tone Muscle Tone WNL Yes M6 PT-IP Treatment Start: 08/25/20 10:30 Freq: NEEDED Status: Active Protocol: Document 08/26/20 13:15 KS (Rec: 08/26/20 14:39 KS [id number]) Physical Therapy Treatment Education Education Provided Safety M7 PT-IP Assessment and Plan Start: 08/25/20 10:30 Freq: NEEDED Status: Active Protocol: Document 08/28/20 09:51 CLB (Rec: 08/28/20 13:24 CLB [id number]) PT Summary Assessment and Plan Summary Impairments ROM,Strength,Balance, Coordination,Sensation, Cognition,Bed Mobility, Transfers,Gait,Activity Tolerance Progress Towards Goals Progressing Toward Goals,Slow Progress due to Medical Issues ,Slow Progress due to Activity Tolerance Assessment Summary Pt required Min A for sup-sit ,SBA to EOB and CGA for sit<> stand and gait. Pt with double vision at start of tx then put on glasses and pt stated better with them. Goals Bed Mobility Goal Independent Transfer Goal Independent,Cane Gait Goal Independent,Cane Gait Distance 150 feet Other Goals up and down 2 steps with rail, cane and CG assist Days to Meet Goals 5 Frequency of Treatment Frequency Of Treatment Twice a Day Treatment Plan Physical Therapy Treatment Plan Bed Mobility Training,Transfer Training,Gait Training, Therapeutic Exercise,Balance Retraining,Discharge Planning, Neuromuscular Re-ed Recommendations To Nursing Amount of Assist Needed 1 Person Assist Discharge Recommendations PT Discharge Recommendations Home with 10/03 Assist,Home Health,SNF Rehab,Acute Rehab Transportation Needs at Discharge Private Vehicle
--- NOTE | 2020-08-28 11:48 | ST.IPTN ---
Visit Care Team Role Provider Type Ida Bell MD Emergency Provider Physician Referring Provider Address: [address] [place] [address], [id number] Daren Teixeira DO Admit Provider Physician Attending Provider Address: [address] [place] [address], [id number] [facility] Treatment Note [facility] Treatment Note Start: 08/25/20 12:58 Freq: Status: Active Protocol: Document 08/28/20 11:36 GUILLE (Rec: 08/28/20 11:45 GUILLE [id number]) Speech Pathology Treatment Note Session Time Visit Start Time 08:52 Visit Stop Time 09:05 Total Visit Minutes 13 Setting Treatment Setting Acute Care Visit Type Note Type Treatment Note General Information General Information Per MD Report: Pt is a 75-year -old female with a past medical history of hypertension, hyperlipidemia, prior SVT status post ablation , previous atrial flutter who presented to the emergency room with altered mental status and is admitted for an acute CVA. Subjective Identification Type Name,ID Card Observations/Patient Presentation Pt was sitting up in bed eating breakfast upon RESAWYER arrival. She was watching TV and complained of double vision. Pt was agreeable to have [facility] assess her swallow while she ate breakfast. Chief Complaint(s) Swallowing Patient Knowledge/Awareness of [facility] Role Good in Treatment Objective Rehabilitation Manager Goals Pt will safely tolerate PO intake to meet hydration and nutrition needs without s/sx aspiration. Treatment Activities Pt tolerated oatmeal and diced melon with thin liquids from cup and straw without overt s/ sx of aspiration. Mastication of melon was slow with piecemeal swallow. Liquid wash assisted oral swallow phase. No abnormal oral residue observed. The pt required some assistance in accessing utensil to food d/t visual deficits; otherwise able to self-feed. OT was not available for consultation at the time. PT was notified and informed that the pt has assistive eye glasses provided by OT. These glasses were not used during ST session. Assessment Patient Response to Treatment Good Rehab Potential Good Impairments Identified Dysphagia Progress Towards Goals Excellent Progress Assessment of Overall Progress Improving Assessment of Improvement The pt demonstrated safe tolerance of current diet. Mod assistance needed for self- feeding d/t visual deficits; however, OT is working with pt to use assistive eye glasses that were not used during [facility] session. Pt will be discharged from [facility] services at this time. Reviewed with Patient Goals,Progress Being Made,Home Exercise Program Patient/Caregiver Understanding Good Plan Therapeutic Contents Client Education,Swallowing/ Feeding Provided Patient/Caregiver Instruction Home Exercise Program,Plan of Care,Questions/Concerns Therapy Recommendations Discharge from Speech Therapy Reason for Discharge Goals met
[2020-08-28 13:00] VITALS: BP 150/79; PULSE 69; RESP 16; TEMP 36.6; O2SAT 98
--- NOTE | 2020-08-28 13:59 | CM.DPC ---
DCP Cont: Patient's [id number], Joselin, called earlier this morning inquiring if patient would be discharging today. Let her know that discharge orders were not yet in, but would update her. Plan is for [facility] nursing, P.T, O.T. Did received discharge orders. Updated Josh at [facility] that patient is being discharged home. Faxed over orders, face to face, DC summary is not yet completed, asked Joselin, quality assurance assistant, to continue to look for DC Summary and fax [facility] when completed. Sent yesterday's progress note, P.T. notes as well. Updated [id number], Joselin, that patient is discharging home today, and this nurse case manager is ordering [facility]. Stated that her , patient's son, will come and picking belt operator patient after he gets off of work at 1530, will be here at approximately 1630. Updated nurse, Pauly. Verbal IMM updated. P: Patient is discharging home today with [facility]. Have faxed [place] information, but DC summary is not yet completed. Shiela Huntley, NICHOLE/Vocational Technical Education Director
[2020-08-28 14:09] VITALS: O2SAT 96
--- NOTE | 2020-08-28 14:24 | PM.DS.1 ---
History of Present Illness History of Present Illness Chief complaint: stroke Narrative: This is a 75-year-old female with a past medical history of hypertension, hyperlipidemia, prior SVT status post ablation who presented to the emergency room with altered mental status. According to the ER provider, family went to check on the patient this morning and found her minimally responsive. A code stroke was called in the ER but patient appeared to be altered more likely because of a metabolic cause. The patient is quite somnolent currently, but will awaken to sternal rub and does follow commands but rapidly falls back asleep. She follows commands in all extremities equally. There is no facial droop. Her speech is quite slurred. I was able to speak to the daughter and she was not able to really give any additional information regarding the acute events. She does state that the patient is not a complainer but does generally take her medications. She also says that in the past the patient has had a couple episodes of slurred speech and facial droop for which she did not seek medical care after the symptoms resolved after couple of minutes. She states that her mom has not complained of any shortness of breath, palpitations, urinary frequency or dysuria but frequently will not voice these complaints to her family. In the emergency room she was mildly hypertensive, but the remainder of her vital signs were unremarkable. She was noted to be in atrial flutter with a controlled rate, this is a new diagnosis for the patient. Laboratory evaluation revealed an unremarkable CBC, normal coagulation studies. Chemistries revealed a mild hyponatremia with a sodium of 133, normal creatinine at 0.76, a glucose of 66. The patient was given an amp of D50 without improvement in her mental status. Lactic acid was 1.0. Troponin was mildly elevated at 0.089. TSH was mildly low at 0.142 with normal free T3 and T4 levels. UA was grossly positive with nitrates, leuk esterase, and greater than 100 white cells and many bacteria. Chest x-ray was negative for acute pathologies. CT head without contrast and CT angiogram of her head and neck revealed evidence previous/old strokes, but no acute hemorrhage or infarction. There was prominent cerebral atrophy and microvascular ischemic changes. Urine drug screen was negative. COVID testing was negative. Patient was admitted for toxic metabolic encephalopathy of uncertain etiology. Discharge Providers Provider Date of admission: 08/24/20 11:36 Discharge Date: 08/28/20 Consults: 08/25/20 08:03 Consult to Occupational Therapy Evaluate & Treat Comment: Physician Instructions: Evaluate and treat Consult to Physical Therapy Evaluate & Treat Comment: Physician Instructions: Evaluate and Treat Consult to Speech Therapy Evaluate & Treat Comment: CVA Physician Instructions: Evaluate and treat 08/27/20 14:58 Consult to Home Health Routine Comment: FWW at d/c Reason For Exam: HH RN/OT/PT at dc Discharge provider: Vishal Dean MD Summary Hospital Course Discharge Diagnosis: 1. Acute bilateral multi hemisphere CVA, embolic 2. Atrial flutter, likely chronic 3. Chronic hypertension 4. Acute cystitis with Enterobacter 5. Acute encephalopathy secondary to CVA Procedures: MR stroke protocol:1. Bilateral acute to early subacute infarcts of the thalami, medial left midbrain, and left cerebellar hemisphere. Given the multifocal distribution, the findings are suggestive of embolic disease. 2. Foci of magnetic susceptibility within the left thalamic infarct compatible with hemorrhagic transformation, likely reflecting petechial hemorrhage. 3. Mild to moderate cerebral volume loss and chronic white matter small vessel ischemic changes. Brain/neck MRA: No high-grade stenosis or occlusion Hospital Course: Patient was admitted with altered mental status which was explained by acute bilateral CVA thought to be embolic from known atrial flutter. She was initially minimally responsive and thought to have a toxic metabolic encephalopathy before we diagnosed the stroke. She has had significant improvement in the last 48 hours, much more alert but does get tired or sleepy later in the day. She has new diplopia and aphasia secondary to stroke. There was question of hemorrhagic conversion per radiology reading but on neuro surgery review at [facility] they did not see any hemorrhage. Case was also reviewed with [facility] neuro linen sorter Dr Alfaro who recommended to start back on aspirin and switch to oral anticoagulant in 2 weeks. In addition he recommended repeating a head CT in a couple of weeks or if there is any mental status change or worsening. She will continue PT, OT and ST through home health. She will follow-up with cardiology for atrial flutter. She recently concluded a ZIO patch and awaiting results but was in atrial flutter with variable conduction and controlled rate. She was also treated for Enterobacter UTI which was really a secondary diagnosis and not likely contributor to her presentation. Status at Discharge Cognitive/behavioral status at discharge: oriented Overall status at discharge: patient is progressing back to baseline Time Spent with Patient Time spent: Greater than 30 minutes Exam Vital Signs (past 8 hours): - 08/28/20 09:32 08/28/20 13:00 08/28/20 14:09 Temperature 97.6 F 97.8 F Pulse Rate 69 69 Respiratory Rate 16 16 Blood Pressure 152/87 H 150/79 H Pulse Oximetry 98 98 96 Oxygen Delivery Method Room Air Oxygen Flow Rate 0 Objective Labs Result Diagrams: 08/25/20 08:24 08/25/20 08:24 [facility] Medical History (Updated 08/24/20 @ 14:11 by Elisabeth Piña RN) H/O supraventricular tachycardia Hard of hearing HTN (hypertension) Hyperlipidemia Osteoporosis Syncope Vitamin D deficiency, unspecified Surgical History (Updated 08/24/20 @ 14:11 by Elisabeth Piña RN) History of lumpectomy History of radiofrequency ablation (RFA) procedure for cardiac arrhythmia Social History household members: family and children Smoking Status: Never smoker Discharge Plan Discharge Plan Patient Disposition: Home Provider Discharge Comment: Follow up with PCP and emergency service restorer. You should have a repeat head CT in about 2 weeks and get started on an oral anticoagulant in lieu of aspirin. Home health nurse, PT and OT has been arranged. Discharge orders & Medications Prescriptions: Continued atorvastatin 10 mg tablet 10 mg PO DAILY RF: 0 alendronate 70 mg Tablet 70 mg PO QWEEK RF: 0 aspirin 81 mg Tablet 81 mg PO DAILY RF: 0 losartan 100 mg Tablet 100 mg PO DAILY RF: 0 omega-3 fatty acids Capsule 500 mg PO DAILY RF: 0 cholecalciferol (vitamin D3) [Vitamin D3] 125 mcg (5,000 unit) Tablet 50,000 unit PO WEEKLY RF: 0 [id number] 500 mg calcium- 400 unit-15 mcg Tablet 500 tab PO DAILY RF: 0 Centrum Chewables 8 mg-400 mcg- 10 mcg Tablet,Chewable 400 tab PO DAILY RF: 0 Follow up/Referrals: Nayeli Bustamante MD [Physician] - 1 Week (09/05 check in @ 4:[address] boswell acute embolic CVA) Quality VTE Deep Vein Thrombosis/Pulmonary Embolism Present on Admission: No
[2020-08-28 15:00] VITALS: BP 153/98; PULSE 72; RESP 17; TEMP 36.3; O2SAT 98
--- NOTE | 2020-08-28 15:28 | PT.IPTN ---
Current Diagnoses Metabolic encephalopathy (08/24/20) Physical Therapy Treatment Note M2 PT-IP Current Condition Start: 08/25/20 10:30 Freq: NEEDED Status: Active Protocol: Document 08/25/20 11:30 DLM (Rec: 08/25/20 13:17 DLM [id number]) Physical Therapy Current Condition Current Condition Evaluation Date 08/25/20 Treatment Diagnosis stroke, impaired balance Onset Date 08/24/20 Precautions Other Precautions she descibes impaired vision on left M3 PT-IP Subjective Start: 08/25/20 10:30 Freq: NEEDED Status: Active Protocol: Document 08/28/20 15:16 CLB (Rec: 08/28/20 16:22 CLB [id number]) Subjective Physical Therapy Visit Type Type Treatment Note Visit Start Time 15:16 Visit Stop Time 15:28 Total Visit Minutes 12 Number of [facility] SALES Visits 5 Physical Therapy Visit Comments Patient Comments Pt agreeable to do therapy. Therapy Pain Assessment Pain Present Pain Present Denied Pain M4 PT-IP Mobility and Gait Start: 08/25/20 10:30 Freq: NEEDED Status: Active Protocol: Document 08/28/20 15:16 CLB (Rec: 08/28/20 16:22 CLB [id number]) PT-Transfer Assessment Sit to and From Stand Sit to and from Stand Contact Guard Assistance,1 Person Assistance,Use of Upper Extremities Equipment Transfer Assistive Device Gait Belt,Front Wheeled Walker Orthotic/Prosthetic Devices or Brace: No Transfers Transfer Destination Chair Transfer Technique ambulated using FWW Transfer Ability Level of Assist Contact Guard Assistance,1 Person Assistance,Use of Upper Extremities Comments Mobility Comments Pt stood CGA and ambulated to , pt sat CGA. Pt stood CGA reaching for right rail. Pt climbed three steps with right rail and cane in left hand requiring CGA up stairs and Min A to turn around at top of stairs and Min A to descend stairs. Pt returned to room transferring from to chair with CGA and FWW. Pt left in chair with alarm attached, call light and all other needs within reach. Stair Climbing Assessment Evaluation Level of Assist On Stairs Contact Guard Assistance, Minimal Assistance,1 Person Assistance Devices Stair Climbing Assistive Devices Straight Cane,Right Railing Technique/Endurance Stair Climbing Direction Ascend and Descend Stair Climbing Technique Step to Step Number of Steps Climbed 3 Stair Climbing Set # Repetitions (reps) 1 Comments Stair Climbing Comments see mobility comments M5 PT-IP Objective Assessments Start: 08/25/20 10:30 Freq: NEEDED Status: Active Protocol: Document 08/25/20 11:30 DLM (Rec: 08/25/20 13:17 DLM [id number]) Orientation Orientation/Cognition Level of Alertness Alert Orientation Name,Month,Year Language Function Ability Garbled Speech,Hard of Hearing Comments pt knows she is in the hospital but did not know the name, she does not know how she got here nor why, no unsafe activity attempted but pt has limited awareness of current situation, she did not know time of day, she requested her teeth to eat lunch Gross Range of Motion Upper Extremity ROM Assessment Within Functional Limits Lower Extremity ROM Assessment Within Functional Limits Strength Comments Strength Comments pt not able to fully participate in manual muscle testing this visit, using all extremities functionally, unable to determine if mild strength deficits Coordination Assessment Gross Coordination Gross Coordination WNL Sensation Assessment Comments Sensation Comments no sensory changes reported by patient Muscle Tone Muscle Tone WNL Yes M6 PT-IP Treatment Start: 08/25/20 10:30 Freq: NEEDED Status: Active Protocol: Document 08/26/20 13:15 KS (Rec: 08/26/20 14:39 KS [id number]) Physical Therapy Treatment Education Education Provided Safety M7 PT-IP Assessment and Plan Start: 08/25/20 10:30 Freq: NEEDED Status: Active Protocol: Document 08/28/20 15:16 CLB (Rec: 08/28/20 16:22 CLB [id number]) PT Summary Assessment and Plan Summary Impairments ROM,Strength,Balance, Coordination,Sensation, Cognition,Bed Mobility, Transfers,Gait,Activity Tolerance Progress Towards Goals Progressing Toward Goals Assessment Summary Pt requires CGA for all mobility and CGA-Min A for stair climbing. Pt plans to go home with son and daughter to assist her. Goals Bed Mobility Goal Independent Transfer Goal Independent,Cane Gait Goal Independent,Cane Gait Distance 150 feet Other Goals up and down 2 steps with rail, cane and CG assist Days to Meet Goals 5 Frequency of Treatment Frequency Of Treatment Twice a Day Treatment Plan Physical Therapy Treatment Plan Bed Mobility Training,Transfer Training,Gait Training, Therapeutic Exercise,Balance Retraining,Discharge Planning, Neuromuscular Re-ed Recommendations To Nursing Amount of Assist Needed 1 Person Assist Discharge Recommendations PT Discharge Recommendations Home with 10/03 Assist,Home Health,SNF Rehab,Acute Rehab Transportation Needs at Discharge Private Vehicle
--- NOTE | 2020-08-28 17:07 | PC.NURSE ---
Pt discharge instructions given to son Pt escorted by staff to waiting vehicle. D/C in stable condition.
== END 2020-08-28 17:00 | disposition home health service (06) | DRG 64 ==
LOC: ED 11:25 → AC 12:23
PROVIDERS: Admitting Provider Internal Medicine; Emergency Provider Emergency Medicine; Referring Provider Emergency Medicine; Visit Provider Internal Medicine
DX: I63.442 Cerebral infarction due to embolism of left cerebellar artery (principal); G93.41 Metabolic encephalopathy; N30.00 Acute cystitis without hematuria; I48.92 Unspecified atrial flutter; R47.01 Aphasia; I63.49 Cerebral infarction due to embolism of other cerebral artery; B96.89 Other specified bacterial agents as the cause of diseases classified elsewhere; I10 Essential (primary) hypertension; E78.5 Hyperlipidemia, unspecified; R77.8 Other specified abnormalities of plasma proteins
CPT/HCPCS: 36415; 70450; 70496; 70498; 70548; 70553; 71045; 80048; 80053; 80061; 80305; 81001; 82550; 82553; 82962; 83036; 83605; 83735; 84436; 84443; 84481; 84484; 85025; 85610; 85730; 87040; 87077; 87086; 87186; 87635; 92610; 93005; 96361; 96365; 96375; 97110; 97116; 97162; 97166; 97530; 97535; 99284; 99285; C9803; A9579; J0696; J1650; J3480; Q9967

== ENCOUNTER → 2020-09-08 11:08 | Outpatient (CLI) | payer MEDICARE, SELFPAY ==
[2020-08-24 14:08] VITALS: BMI 22.3
--- NOTE | 2020-09-08 | DI.CT.S_ITS ---
PROCEDURE: CT HEAD/BRAIN WO CON INDICATIONS: Cerebral infarction due to embolism of unspecified cerebella TECHNIQUE: Noncontrast 4.5 mm thick angled axial sections acquired from the foramen magnum to the vertex, with coronal and sagittal reformats. For radiation dose reduction, the following was used: automated exposure control, adjustment of mA and/or kV according to patient size. COMPARISON: [facility], CT, CT ANGIO HEAD AND NECK, 08/24/2020, 9:27. [facility], CT, CT STROKE, 08/24/2020, 9:23. [facility], MR, MR STROKE, 08/24/2020, 14:51. FINDINGS: Image quality: Excellent. CSF spaces: Basal cisterns are patent. Stable bilateral subdural hygromas are seen, right larger than left. The ventricles are symmetric in size and shape. Brain: No intracranial bleeds or masses. There is cerebral volume loss for age, with resultant ventricular and sulcal prominence. There are periventricular and deep white matter chronic small vessel ischemic changes. No new infarctions can be seen involving the basal ganglia, including the thalami, left worse than right. There also deep white matter infarction seen on the left. A remote left midbrain infarction is also seen. There is intracranial internal carotid artery atherosclerosis. Skull and face: Calvarium and visualized facial bones appear intact, without suspicious lesions. Sinuses: Visualized sinuses and mastoids are clear. IMPRESSION: No sravanthi, acute abnormality can be seen. Several remote appearing infarctions are seen, as demonstrated on the prior MRI. Dictated by: Darrell Candelaria M.D. on 09/08/2020 at 10:41 Approved by: Darrell Candelaria M.D. on 09/08/2020 at 10:46
== END ==
PROVIDERS: PCP Internal Medicine; Referring Provider Internal Medicine; Visit Provider Internal Medicine
DX: I63.449 Cerebral infarction due to embolism of unspecified cerebellar artery; I65.29 Occlusion and stenosis of unspecified carotid artery; G96.08 Other cranial cerebrospinal fluid leak
CPT/HCPCS: 70450

== ENCOUNTER → 2020-09-26 15:52 | Outpatient (CLI) | payer MEDICARE, SELFPAY ==
[2020-08-24 14:08] VITALS: BMI 22.3
--- NOTE | 2020-09-26 15:54 | DI.ECHO.S_ITS ---
[facility]---------+ [facility] +---------+ : : [address] : [place] : : : : [id number] : : : : Phone: [phone]+ Echocardiogram Report + + :Name: LEEANN WYATT Study Date: 09/26/2020 Height: 61 in : :[facility] ReadingLocation: Weight: 152 lb : : Gender: Female BSA: 1.7 m2 : :: 1945 Age: 75 yrs BP: 142/79 mmHg: :Reason For Study: CEREBRAL INFARCTION DUE TO EMBOLISM OF : :CEREBELLAR ARTERY : :Ordering Physician: CHASITY, : :LEEANN Performed By: Joie Frazier : :Referring: LEEANN GASPAR : + + Interpretation Summary The patient was in atrial flutter with heart rates between 55-70 bpm during the exam. The left ventricle is normal in size. The ejection fraction is estimated to be 45-50%. There is no thrombus. There is posterolateral wall severe hypokinesis. The right ventricle is grossly normal size. Right ventricular systolic function is mildly reduced. There is moderate mitral regurgitation. There is mild aortic regurgitation. There is mild tricuspid regurgitation. Pulmonary artery pressures cannot be estimated because of the lack of a measurable TR jet velocity but the IVC suggests a CVP of around 3 mmHg. The ascending aorta is moderately enlarged. Mild atherosclerotic plaque(s) in the aortic arch. Procedure: A two-dimensional transthoracic echocardiogram with color flow and Doppler was performed. The study quality was technically adequate. There is no prior echocardiogram noted for this patient. The patient was in atrial flutter with heart rates between 55-70 bpm during the exam. Left Ventricle: The left ventricle is normal in size. There is mild concentric left ventricular hypertrophy. There is no thrombus. The ejection fraction is estimated to be 45-50%. There is posterolateral wall severe hypokinesis. There is basal inferior wall hypokinesis. E/E' med: 17.8. Right Ventricle: The right ventricle is grossly normal size. Right ventricular systolic function is mildly reduced. Atria: The left atrium is moderately dilated. Right atrial size is normal. There is no Doppler evidence for an interatrial shunt. Mitral Valve: The mitral valve leaflets are mildly calcified. There is moderate mitral regurgitation. Aortic Valve: The aortic valve is trileaflet. The aortic valve opens well. The aortic valve is slightly calcified. There is no aortic valve stenosis. There is mild aortic regurgitation. Tricuspid Valve: The tricuspid valve is normal. Pulmonary artery pressures cannot be estimated because of the lack of a measurable TR jet velocity but the IVC suggests a CVP of around 3 mmHg. There is mild tricuspid regurgitation. Pulmonic Valve: The pulmonic valve leaflets are thin and pliable; valve motion is normal. There is no pulmonic valvular regurgitation. Great Vessels: The aortic root is normal size. The ascending aorta is moderately enlarged. Mild atherosclerotic plaque(s) in the aortic arch. The IVC is of normal diameter and collapses greater than 50% with a sniff. This suggests a low right atrial pressure of 3 mm Hg. Pericardium/ Pleura There is no pericardial effusion. There is no pleural effusion. MMode/2D Measurements & Calculations LVIDd: 4.4 cm LVOT diam: 2.0 cm LVIDs: 3.1 cm Ao root diam: 3.1 cm FS: 28.5 % asc Aorta Diam: 4.2 cm EPSS: 0.92 cm Ao Arch Diam (Prox Trans): 2.2 cm IVSd: 1.3 cm LVPWd: 1.1 cm LV reyes. diameter/BSA (cm/m^2): 2.6 LV sys. diameter/BSA (cm/m^2): 1.9 LA A2 area: 21.5 cm2 RA long axis: 5.1 cm LA A4 area: 18.8 cm2 RA area: 15.2 cm2 LA length (vol): 5.2 cm RA vol: 38.2 ml LA vol: 66.4 ml RA : 22.7 ml/m2 LA vol index: 39.5 ml/m2 IVC diam: 0.88 cm RVD1 (basal): 2.8 cm TAPSE: 1.5 cm Doppler Measurements & Calculations Ao V2 max: 91.9 cm/sec LVOT Max Faheem: 56.9 cm/sec Ao V2 mean: 67.4 cm/sec LV V1 max P.3 mmHg Ao max P.4 mmHg LV V1 VTI: 11.2 cm Ao mean P.0 mmHg BRANDON(I,D): 2.3 cm2 Ao V2 VTI: 15.4 cm BRANDON(V,D): 2.0 cm2 sev ratio: 0.73 BRANDON indexed to BSA (cm^2/m^2): 1.4 AI P1/2t: 1093 msec AI dec slope: 111.0 cm/sec2 MV E max faheem: 76.1 cm/sec PA V2 max: 66.3 cm/sec MV A max faheem: 1.5 cm/sec PA V2 mean: 43.6 cm/sec MV E/A: 50.6 PA mean P.87 mmHg Med Peak E' Faheem: 4.3 cm/sec PA pr(Accel): 43.0 mmHg E/E' med: 17.8 Lat Peak E' Faheem: 7.0 cm/sec E/E' lat: 10.9 E/e' average: 14.3 MV dec time: 0.15 sec SV(LVOT): 35.2 ml Reading Physician:05:33 PM
== END ==
PROVIDERS: PCP Internal Medicine; Referring Provider Internal Medicine; Visit Provider Internal Medicine
DX: I48.92 Unspecified atrial flutter (principal); I34.0 Nonrheumatic mitral (valve) insufficiency; I35.1 Nonrheumatic aortic (valve) insufficiency; I07.1 Rheumatic tricuspid insufficiency; I77.89 Other specified disorders of arteries and arterioles
CPT/HCPCS: 93306

== ENCOUNTER 2020-09-26 17:04 | Emergency (ER) | payer OTHER, SELFPAY ==
[2020-08-24 14:08] VITALS: BMI 22.3
[2020-09-26 17:10] VITALS: BP 148/80; PULSE 69; RESP 16; TEMP 36.3; O2SAT 99
--- NOTE | 2020-09-26 18:23 | DI.RAD.S_ITS ---
PROCEDURE: XR RIBS RT MIN 3V W CXR 1V INDICATIONS: fall, pain TECHNIQUE: 2 views of the right ribs were acquired, along with a single view chest. COMPARISON: None. FINDINGS: Surgical changes and devices: Surgical clips are noted in gallbladder fossa.. Bones and chest wall: No fractures or dislocations. No suspicious bony lesions. Overlying soft tissues appear unremarkable. Lungs and pleura: No pleural effusions or pneumothorax. Lungs appear clear. Mediastinum: Mediastinal contours appear normal. Heart size is enlarged. IMPRESSION: No gross displaced right rib fracture is seen. No acute cardiopulmonary process. Dictated by: Chuck Alfaro M.D. on 09/26/2020 at 18:37 Approved by: Chuck Alfaro M.D. on 09/26/2020 at 18:39
--- NOTE | 2020-09-26 19:22 | ED_ITS ---
HPI - Fall General Chief Complaint: Fall Stated Complaint: right sided pain s/p fall Time Seen by Provider: 09/26/20 18:22 Source: patient Mode of arrival: Wheelchair History of Present Illness HPI Narrative: 75-year-old woman with multiple medical complaints and recent stroke with gait instability and increasing falls. She lives with her son and this morning while getting ready to go to her ophthalmology appointment she suffered a fall landing on her right side. Her son heard her fall to the floor. Was immediately on hand to help. She did not hit her head and is complaining only of right flank pain. She was able to get up with assistance and is otherwise doing well. She is not having any dyspnea, cough, palpitations, abdominal pain, change to bowel or bladder habits. Her baseline poor neurologic function with decreased movement in the right side continues unchanged. Related Data Home Medications Medication Instructions Recorded Confirmed Centrum Chewables 400 tab PO DAILY 08/24/20 08/24/20 alendronate 70 mg PO QWEEK 08/24/20 08/24/20 aspirin 81 mg PO DAILY 08/24/20 08/24/20 atorvastatin 10 mg PO DAILY 08/24/20 08/24/20 [id number] 500 tab PO DAILY 08/24/20 08/24/20 cholecalciferol (vitamin D3) 50,000 unit PO WEEKLY 08/24/20 08/24/20 [Vitamin D3] losartan 100 mg PO DAILY 08/24/20 08/24/20 omega-3 fatty acids 500 mg PO DAILY 08/24/20 08/24/20 Allergies Allergy/AdvReac Type Severity Reaction Status Date / Time codeine Allergy Verified 08/24/20 09:42 morphine Allergy Verified 08/24/20 09:41 Review of Systems Review of Systems ROS Unobtainable: All systems reviewed & are unremarkable except as noted in HPI and below Patient History Medical History Atrial fibrillation and flutter Gait instability H/O supraventricular tachycardia Hard of hearing HTN (hypertension) Hyperlipidemia Osteoporosis Stroke Syncope Vitamin D deficiency, unspecified Surgical History History of lumpectomy History of radiofrequency ablation (RFA) procedure for cardiac arrhythmia Social History household members: family and children Smoking Status: Never smoker Smoking Status: Never smoker alcohol intake frequency: holidays/special occasions only Substance Use Type: does not use Exam Narrative Exam Narrative: General: Frail, in no acute distress. Son supplies the ann ority of the history HEENT: Moist mucous membranes, normal sclera with reactive pupils, Neck: No JVD, supple Respiratory: Lungs are clear to auscultation, no wheezing no rales no rhonchi. Full and symmetrical air movement Cardiac: Irregular but no murmurs no bruits Chest: A bruises noted in the right flank area consistent with area of pain complaints. No tenderness along lower ribs and no subcutaneous air. No abrasions Abdomen: Soft, nontender, good bowel tones, no flank pain Skin: Warm and dry, no rashes Neurologic: Baseline right-sided weakness to complicate global weakness Extremities: No other signs of trauma to extremities and no tenderness to palpation of pelvic ring Psych: Cooperative, non fluent speech baseline Initial Vital Signs Initial Vital Signs: Vital Signs Temperature 97.4 F L 09/26/20 17:10 Pulse Rate 69 09/26/20 17:10 Respiratory Rate 16 09/26/20 17:10 Blood Pressure 148/80 H 09/26/20 17:10 Pulse Oximetry 99 09/26/20 17:10 Course Orders Ordered: ED Orders 09/26/20 18:23 XR ribs RT min 3V w CXR1V Stat Discontinued Medications Acetaminophen (Acetaminophen 325 Mg Tablet) 975 mg PO NOW ONE Stop: 09/26/20 20:38 Last Admin: 09/26/20 20:45 Dose: 975 mg Documented by: ZACHARY Vital Signs Vital signs: Vital Signs - 8 hr 09/26/20 19:35 Temperature 98.3 F Pulse Rate 65 Respiratory Rate 16 Blood Pressure 156/75 H Pulse Oximetry 98 MDM - Fall Medical Records Attestation: I reviewed the patient's medical records. Imaging Data Chest x-ray: Radiologist's Impression: FINDINGS: Surgical changes and devices: Surgical clips are noted in gallbladder fossa.. Bones and chest wall: No fractures or dislocations. No suspicious bony lesions. Overlying soft tissues appear unremarkable. Lungs and pleura: No pleural effusions or pneumothorax. Lungs appear clear. Mediastinum: Mediastinal contours appear normal. Heart size is enlarged. IMPRESSION: No gross displaced right rib fracture is seen. No acute cardiopulmonary process. Dictated by: Chuck Alfaro M.D. on 09/26/2020 at 18:37 Approved by: Chuck Alfaro M.D. on 09/26/2020 at 18:39 MDM Narrative Medical decision making narrative: 75-year-old woman with multiple medical issues and increasing falls after recent stroke with right-sided weakness. Her son is providing excellent care for her. He is getting her to all of her doctor appointments and physical therapy appointments. He was immediately available when she suffered her slight fall today. Fortunately there was only evidence of mild bruising along the right flank with no evidence of internal injuries or fractures. Reassurance is given. Both patient and her son recognize the importance of using her walker for stability given her very high risk of recurrent falls. She is safe for home discharge Discharge Plan Departure Patient Disposition: Home Clinical Impression: Gait instability Fall Qualifiers: Encounter type: initial encounter Qualified Code(s): W19.XXXA - Unspecified fall, initial encounter Contusion of flank Qualifiers: Encounter type: initial encounter Qualified Code(s): S30.1XXA - Contusion of abdominal wall, initial encounter Instructions: DI for Contusion Activity Restrictions/Additional Instructions: Thank you for coming in today Strokes are so frustrating to deal with and it is so hard when your mobility is impaired. You do have a bruise over your right flank that is going to get bigger and likely is going to cause you more pain. There does not appear to be any internal injury and you did not break any ribs. You can use Tylenol to help for pain control. You may also find that using a heating pad helps. Please do all that you can to usual walker to prevent falls and make sure that you continue with your physical therapy appointments I wish you the best Prescriptions: No Action atorvastatin 10 mg tablet 10 mg PO DAILY RF: 0 alendronate 70 mg Tablet 70 mg PO QWEEK RF: 0 aspirin 81 mg Tablet 81 mg PO DAILY RF: 0 losartan 100 mg Tablet 100 mg PO DAILY RF: 0 omega-3 fatty acids Capsule 500 mg PO DAILY RF: 0 cholecalciferol (vitamin D3) [Vitamin D3] 125 mcg (5,000 unit) Tablet 50,000 unit PO WEEKLY RF: 0 [id number] 500 mg calcium- 400 unit-15 mcg Tablet 500 tab PO DAILY RF: 0 Centrum Chewables 8 mg-400 mcg- 10 mcg Tablet,Chewable 400 tab PO DAILY RF: 0 Referrals: Nayeli Bustamante MD [Primary Care Provider] -
[2020-09-26 19:35] VITALS: BP 156/75; PULSE 65; RESP 16; TEMP 36.8; O2SAT 98
[2020-09-26] MEDS: ACETAMINOPHEN 325 MG TABLET 975 MG PO (20:45)
== END 2020-09-26 20:47 | disposition home or self-care (01) ==
PROVIDERS: Emergency Provider Emergency Medicine; PCP Internal Medicine
DX: S30.1XXA Contusion of abdominal wall, initial encounter (principal); R26.89 Other abnormalities of gait and mobility; W19.XXXA Unspecified fall, initial encounter; I10 Essential (primary) hypertension; E78.5 Hyperlipidemia, unspecified; I48.91 Unspecified atrial fibrillation; Z79.82 Long term (current) use of aspirin; I63.449 Cerebral infarction due to embolism of unspecified cerebellar artery; I48.92 Unspecified atrial flutter; I34.0 Nonrheumatic mitral (valve) insufficiency; I35.1 Nonrheumatic aortic (valve) insufficiency; I07.1 Rheumatic tricuspid insufficiency; I77.89 Other specified disorders of arteries and arterioles
CPT/HCPCS: 71101; 93306; 99281; 99284

== ENCOUNTER → 2020-10-24 16:01 | Outpatient (CLI) | payer OTHER, SELFPAY ==
[2020-08-24 14:08] VITALS: BMI 22.3
== END ==
PROVIDERS: PCP Internal Medicine; Referring Provider Internal Medicine; Visit Provider Internal Medicine
DX: Z12.31 Encounter for screening mammogram for malignant neoplasm of breast (principal); Z53.8 Procedure and treatment not carried out for other reasons

== ENCOUNTER → 2020-11-10 10:53 | Outpatient (CLI) | payer OTHER, SELFPAY ==
[2020-08-24 14:08] VITALS: BMI 22.3
--- NOTE | 2020-11-10 10:54 | DI.MG.S_ITS ---
BILATERAL DIGITAL SCREENING MAMMOGRAM 3D/2D WITH CAD: 11/10/2020 CLINICAL: Routine screening. Comparison is made to exams dated: 06/29/2016 mammogram, 07/14/2017 mammogram, and 10/31/2018 mammogram - outside location. There are scattered fibroglandular elements in both breasts. Current study was also evaluated with a Computer Aided Detection (CAD) system. No significant masses, calcifications, or other findings are seen in either breast. There has been no significant interval change. IMPRESSION: NEGATIVE There is no mammographic evidence of malignancy. A 1 year screening mammogram is recommended. This exam was interpreted at Station ID: [id number]. NOTE: For mammograms, a report in lay terms will be sent to the patient. Approximately 15% of breast malignancies will not be visualized mammographically. In the management of a palpable breast mass, a negative mammogram must not discourage biopsy of a clinically suspicious lesion. Electronically Signed By: Sam hernandes/keke:11/10/2020 11:30:34 letter sent: Normal Exam ACR BI-RADS Category 1: Negative [id number]
== END ==
PROVIDERS: PCP Internal Medicine; Referring Provider Internal Medicine; Visit Provider Internal Medicine
DX: Z12.31 Encounter for screening mammogram for malignant neoplasm of breast (principal)
CPT/HCPCS: 77063; 77067